=== PATIENT | male | born 1935 | race Caucasian/White ===

== ENCOUNTER → 2019-03-10 | Day surgery (SDC) | payer MEDICARE, OTHER ==
[2019-03-05 13:06] VITALS: BMI 36.7
[2019-03-10 14:25] VITALS: BP 139/86; PULSE 88; RESP 16; TEMP 97
--- NOTE | 2019-03-17 23:09 | PCN ---
PROCEDURE NOTE DATE OF PROCEDURE: 03/10/2019. BRIEF HISTORY: Patient is an 83-year-old white male with history of dementia, presently being investigated for progressive dysphagia to solids and liquids for the last several months' duration. He recently had an upper endoscopy done at [facility] about a month ago that showed evidence of slightly dilated esophagus with a tight lower esophageal sphincter suspicious for esophageal achalasia. He is hence scheduled for esophageal manometry to evaluate further. PROCEDURE PERFORMED: High-resolution impedance esophageal manometry. PREOPERATIVE DIAGNOSIS: Progressive dysphagia to solids and liquids of several months' duration. PROCEDURE DESCRIPTION: After informed consent was obtained, the patient was brought to the endoscopy unit. The esophageal manometry catheter was passed into the external nostril and was gently advanced into the distal esophagus and into the stomach. Study was performed by endoscopy nurse Tri Robb. Using [place] classification, the study was interpreted and the following are the study results: 1. Lower esophageal sphincter data: Mean IRP is 30 mmHg. 2. Lower esophageal body: Mean DCI 912. Peristaltic contractions 0%. Bolus transit time with liquids 20% and viscous was 80%. 3. Mean DCI 912 mmHg. 4. Multiple isometric contractions noted throughout the study period. INTERPRETATION: The above esophageal manometry study shows increased mean integral residual pressures (mean IRP which is 30 mmHg) and there was evidence of aperistalsis with isometric contractions, all consistent with esophageal achalasia, type 2. MMNADYAL / LATASHAN: [id number] /
== END ==
LOC: ORWHC2ENDO 14:05
PROVIDERS: ATTEND Internal Medicine Gastroenterology
DX: K21.9 Gastro-esophageal reflux disease without esophagitis (principal); R13.10 Dysphagia, unspecified
CPT/HCPCS: 91010; 91037

== ENCOUNTER 2020-02-01 10:26 | Inpatient (IN) | payer MEDICARE, OTHER ==
[2020-02-01] MEDS ORDERED: VANCOMYCIN IV PER PHARMACY 1 EACH MISC MISCELLANE PRN ×2 (11:18→15:47)
[2020-02-01] MEDS ORDERED: CEFEPIME 2 GM in SODIUM CHLORIDE 0.9% 100 ML IVPB STA (11:18)
[2020-02-01] MEDS ORDERED: NALOXONE 0.4 MG/ML 1 ML VIAL IV PRN (11:19)
--- NOTE | 2020-02-01 11:21 | ED ---
General Adult HPI <Partha Tavarez - Last Filed: 02/01/20 11:24> - General Source: Caregiver Mode of arrival: wheelchair Limitations: no limitations <Real Santos - Last Filed: 02/01/20 14:20> - General Chief complaint: Recheck/Abnormal Lab/Rx Stated complaint: Wound Care sent to ER Time Seen by Provider: 02/01/20 11:03 - History of Present Illness Initial comments: 84-year-old male with a complicated past medical history including atrial fibrillation, heart failure, dementia, COPD, hyperlipidemia, hypertension presents to the emergency room for a chief complaint of right foot wound. Patient is very hard of hearing. Patient is a poor historian likely because of this. Patient has had a chronic wound on his right foot it appears for at least over one month as he has been seen in wound center. Patient was sent over from wound center and dropped off by family member however they did not stay. Patient denies fevers. Patient does have a history of MRSA. Patient has no other complaints at this time including shortness of breath, chest pain, abdominal pain, nausea or vomiting, headache, or visual changes. (Real Santos) - Related Data Home Medications Medication Instructions Recorded Confirmed Bisacodyl 10 mg PO DAILY PRN 03/05/19 02/01/20 HYDROcodone/APAP 5-325MG [[place] 1 tab PO QID 03/05/19 02/01/20 5-325] Insulin Glargine,Hum.rec.anlog 40 unit SQ HS@209903/05/19 02/01/20 [Basaglal Patricia U-100] Magnesium Oxide [Mag-Ox] 400 mg PO DAILY@89903/05/19 02/01/20 Metoprolol Tartrate [Lopressor] 100 mg PO BID@899,209903/05/19 02/01/20 Acetaminophen [Tylenol Extra 500 mg PO Q8H PRN 02/01/20 02/01/20 Strength] Diltiazem HCl [Diltiazem HCl 24Hr 240 mg PO DAILY@89902/01/20 02/01/20 ER] Donepezil HCl [Aricept] 5 mg PO HS@209902/01/20 02/01/20 Furosemide [Lasix] 40 mg PO DAILY@89902/01/20 02/01/20 INSULIN ASPART (NovoLOG) [NovoLOG 5 unit SQ DAILY@1700 02/01/20 02/01/20 (formulary)] Magnesium Hydroxide [Milk of 2,400 mg PO Q48H PRN 02/01/20 02/01/20 Magnesia] Na Phos,M-B/Na Phos,Di-Ba [Fleet 133 ml RECTAL DAILY PRN 02/01/20 02/01/20 Adult] Omeprazole 20 mg PO DAILY@0600 02/01/20 02/01/20 Phenylephrine HCl/[place] Butter 1 supp RECTAL Q12H 02/01/20 02/01/20 [Preparation H Suppository] Potassium Chloride 10 meq PO DAILY@0900 02/01/20 02/01/20 Warfarin [Coumadin] 4.5 mg PO HS@2100 02/01/20 02/01/20 bisacodyL [Bisacodyl] 10 mg RECTAL Q72H PRN 02/01/20 02/01/20 guaiFENesin [guaiFENesin Oral 200 mg PO Q4H PRN 02/01/20 02/01/20 Solution] polyethylene glycoL 3350 [Miralax] 17 gm PO DAILY@0900 02/01/20 02/01/20 Allergies Allergy/AdvReac Type Severity Reaction Status Date / Time celecoxib [From Celebrex] Allergy Unknown Verified 02/01/20 11:31 gabapentin [From Neurontin] Allergy Unknown Verified 02/01/20 11:31 Review of Systems ROS Other: All systems not noted in ROS Statement are negative. <Partha Tavarez - Last Filed: 02/01/20 11:24> ROS Other: All systems not noted in ROS Statement are negative. <Real Santos - Last Filed: 02/01/20 14:20> ROS Statement: Those systems with pertinent positive or pertinent negative responses have been documented in the HPI. Past Medical History Past Medical History: Atrial Fibrillation, Heart Failure, COPD, Dementia, Eye Disorder, GERD/Reflux, Hearing Disorder / Deafness, Hyperlipidemia, Hypertension, Myocardial Infarction ([place]), Osteoarthritis (OA) Additional Past Medical History / Comment(s): GLAUCOMA. CHRONIC KIDNEY DISEASE Last Myocardial Infarction Date:: UNK History of Any Multi-Drug Resistant Organisms: MRSA, Other MDRO Date of last positivie culture/infection: 12/21/19 MRSA MDRO Source:: MRSA FOOT Past Surgical History: Unable to Obtain, Hernia Repair Past Anesthesia/Blood Transfusion Reactions: Unable to Obtain Past Psychological History: Unable to Obtain Past Alcohol Use History: None Reported Past Drug Use History: None Reported - Past Family History Mother History Unknown: Yes <Real Santos - Last Filed: 02/01/20 14:20> General Exam Limitations: no limitations General appearance: alert, in no apparent distress Head exam: Present: atraumatic, normocephalic, normal inspection Eye exam: Present: normal appearance, PERRL, EOMI. Absent: scleral icterus, conjunctival injection, periorbital swelling ENT exam: Present: normal exam, mucous membranes moist Neck exam: Present: normal inspection, full ROM. Absent: tenderness, meningismus, lymphadenopathy Respiratory exam: Present: normal lung sounds bilaterally. Absent: respiratory distress, wheezes, rales, rhonchi, stridor Cardiovascular Exam: Present: regular rate, normal rhythm, normal heart sounds. Absent: systolic murmur, diastolic murmur, rubs, gallop, clicks Extremities exam: Present: full ROM (Full range of motion of the right foot.), normal capillary refill (Capillary refill less than 2 seconds in the right lower extremity.), pedal edema (Patient does have edema noted of the right foot.), other (Patient has wound noted to the lateral aspect to the right foot. Fifth toe appears necrotic. There is erythema associated with the right foot as well.). Absent: tenderness, calf tenderness <Real Santos - Last Filed: 02/01/20 14:20> Course <Partha Tavarez - Last Filed: 02/01/20 11:24> Vital Signs 02/01/20 02/01/20 10:32 12:02 Temperature 97.9 F 98.0 F Pulse Rate 86 86 Respiratory 18 18 Rate Blood Pressure 144/88 138/78 O2 Sat by Pulse 95 97 Oximetry - Reevaluation(s) Reevaluation #1: 02/01/20 11:24 PA supervision: I proceeded [id number] evaluation the patient. He was sent over from wound care center due to a wound on the right foot. He does demonstrate evidence of duskiness to the right foot with evidence of a wound with concern for osteomyelitis. Patient be admitted with vascular surgery consultation the case was discussed with Dr. Woodruff. (Partha Tavarez) Medical Decision Making - Lab Data Result diagrams: 02/01/20 11:28 02/01/20 11:28 <Real Santos - Last Filed: 02/01/20 14:20> - Medical Decision Making Septic workup initiated. Patient was started on vancomycin to cover for history of MRSA as well as cefepime. CBC shows leukocytosis with a left shift. CMP does show evidence of chronic kidney disease. CRP is elevated to 77. X-ray of the right foot was reviewed and does show increased soft tissue ulceration and subcutaneous gas in the right lateral plantar foot. There is evidence of oss eous erosion and osteomyelitis as well. Patient was admitted to Dr. Woodruff who requested a consult to Dr. Patel. (Real Santos) Disposition <Partha Tavarez - Last Filed: 02/01/20 11:24> Is patient prescribed a controlled substance at d/c from ED?: No Time of Disposition: 11:20 <Real Santos - Last Filed: 02/01/20 14:20> Clinical Impression: Cellulitis, Chronic wound of extremity Disposition: ADMITTED IP TO THIS HOSP
[2020-02-01] MEDS ORDERED: SODIUM CHLORIDE 0.9% 500 ML 500 ML IV SCH (11:30)
[2020-02-01] MEDS ORDERED: VANCOMYCIN 1,750 MG in SODIUM CHLORIDE 0.9% 500 ML 500 ML IVPB ONE (11:30)
[2020-02-01 11:51] LABS: Basophils # (A) 0.1 k/uL (0-0.2); Basophils % (A) 1 %; Eosinophils # (A) 0.6 k/uL (0-0.7); Eosinophils % (A) 4 %; HCT 46.1 % (39.0-53.0); HGB 14.3 gm/dL (13.0-17.5); Lymphocytes # (A) 2.3 k/uL (1.0-4.8); Lymphocytes % (A) 15 %; MCH 26.7 pg (25.0-35.0); MCHC 30.9 g/dL (31.0-37.0); MCV 86.3 fL (80.0-100.0); Mean Platelet Volume 10.2; Monocytes % (A) 7 %; Neutrophils # (A) 11.1 k/uL (1.3-7.7); Neutrophils % (A) 72 %; Platelet Count 276 k/uL (150-450); RBC 5.34 m/uL (4.30-5.90); RDW 13.2 % (11.5-15.5); WBC 15.4 k/uL (3.8-10.6)
--- NOTE | 2020-02-01 11:56 | XR ---
EXAMINATION TYPE: XR foot complete RT DATE OF EXAM: 02/01/2020 CLINICAL HISTORY: Sepsis. Nonhealing wound lateral side of right foot. TECHNIQUE: Frontal, lateral, and oblique images of the right foot are obtained. COMPARISON: 12/21/2019 right foot radiograph FINDINGS: There is increased ulceration of the plantar aspect of the right lateral foot over the reg ion of the fifth metatarsal phalangeal joint, with increased soft tissue irregularity and subcutaneou s gas. There are increased lucencies overlapping the fifth metatarsal head and base of the fifth prox imal phalanx there is decreased cortical sharpness at the medial aspect of the fifth metatarsal head. There is no acute fracture/dislocation evident in the right foot. IMPRESSION: Increased soft tissue ulceration and subcutaneous gas of the right lateral and plantar fo ot in the region of the fifth MTP joint versus 12/21/2019. Many lucencies overlying the fifth MTP join t are likely related to subcutaneous gas. There is decreased cortical sharpness at the medial aspect of the fifth metatarsal head, which may represent osseous erosion and osteomyelitis. Consider MRI exa mination of the foot.
[2020-02-01 12:01] LABS: INR 2.2 (<1.2); Partial Thromboplastin Time 35.5 sec (22.0-30.0); Prothrombin Time 21.6 sec (9.0-12.0)
[2020-02-01] MEDS: SODIUM CHLORIDE 0.9% 1,000 ML IV SCH (12:01)
[2020-02-01 12:20] LABS: Albumin 3.4 g/dL (3.5-5.0); C Reactive Protein 77.3 mg/L (<10.0); Calcium 8.7 mg/dL (8.4-10.2); Potassium 4.9 mmol/L (3.5-5.1); Total Bilirubin 0.6 mg/dL (0.2-1.3); Total Protein 7.2 g/dL (6.3-8.2)
[2020-02-01] MEDS ORDERED: PHYTONADIONE ORAL 5 MG/5 ML ORAL.SYRG PO STA (14:04)
--- NOTE | 2020-02-01 14:04 | P.GSCN ---
History of Present Illness Consult date: 02/01/20 Reason for Consult: Nonhealing wound to the right fifth toe and foot History of present illness: This is a 84-year-old male with a past medical history that includes atrial fibrillation, heart failure, dementia, COPD, hyperlipidemia, hypertension who presented to the emergency room for chief complaint of right foot wound. The patient is a very poor historian and most of the HPI is collected from the chart. Apparently the patient has had the wound for at least a month, who had been seen in the wound clinic and was told to come to the emergency department. There is no family present at the bedside. Patient states there is pain to the right toe and foot, he is unsure if he has had a fever. He denies any shortness of breath or chest pain. Patient apparently has a past history of MRSA. He does currently take Coumadin. His WBC is 15.4, hemoglobin 14.3, hematocrit 46, platelets 276, sodium 135, potassium 4.9, BUN 35, creatinine 1.34. Review of Systems Review systems as stated in the HPI, patient was unable to give a complete review of systems Past Medical History Past Medical History: Atrial Fibrillation, Heart Failure, COPD, Dementia, Eye Disorder, GERD/Reflux, Hearing Disorder / Deafness, Hyperlipidemia, Hypertension, Myocardial Infarction ([place]), Osteoarthritis ([place]) Additional Past Medical History / Comment(s): GLAUCOMA. CHRONIC KIDNEY DISEASE Last Myocardial Infarction Date:: UNK History of Any Multi-Drug Resistant Organisms: MRSA, Other MDRO Year Discovered:: 12/21/19 MRSA MDRO Source:: MRSA FOOT Past Surgical History: Unable to Obtain, Hernia Repair Past Anesthesia/Blood Transfusion Reactions: Unable to Obtain Past Psychological History: Unable to Obtain Past Alcohol Use History: None Reported Past Drug Use History: None Reported - Past Family History Mother History Unknown: Yes Medications and Allergies Home Medications Medication Instructions Recorded Confirmed Type Bisacodyl 10 mg PO DAILY PRN 03/05/19 02/01/20 History HYDROcodone/APAP 5-325MG [[place] 1 tab PO QID 03/05/19 02/01/20 History 5-325] Insulin Glargine,Hum.rec.anlog 40 unit SQ HS@2100 03/05/19 02/01/20 History [Basaglal Ibrahimpen U-100] Magnesium Oxide [Mag-Ox] 400 mg PO DAILY@0900 03/05/19 08/25/20 History Metoprolol Tartrate [Lopressor] 100 mg PO BID@899,209903/05/19 02/01/20 History Acetaminophen [Tylenol Extra 500 mg PO Q8H PRN 02/01/20 02/01/20 History Strength] Diltiazem HCl [Diltiazem HCl 24Hr 240 mg PO DAILY@89902/01/20 02/01/20 History ER] Donepezil HCl [Aricept] 5 mg PO HS@209902/01/20 02/01/20 History Furosemide [Lasix] 40 mg PO DAILY@89902/01/20 02/01/20 History INSULIN ASPART (NovoLOG) [NovoLOG 5 unit SQ DAILY@169902/01/20 02/01/20 History (formulary)] Magnesium Hydroxide [Milk of 2,400 mg PO Q48H PRN 02/01/20 02/01/20 History Magnesia] Na Phos,M-B/Na Phos,Di-Ba [Fleet 133 ml RECTAL DAILY PRN 02/01/20 02/01/20 History Adult] Omeprazole 20 mg PO DAILY@59902/01/20 02/01/20 History Phenylephrine HCl/[place] Butter 1 supp RECTAL Q12H 02/01/20 02/01/20 History [Preparation H Suppository] Potassium Chloride 10 meq PO DAILY@89902/01/20 02/01/20 History Warfarin [Coumadin] 4.5 mg PO HS@209902/01/20 02/01/20 History bisacodyL [Bisacodyl] 10 mg RECTAL Q72H PRN 02/01/20 02/01/20 History guaiFENesin [guaiFENesin Oral 200 mg PO Q4H PRN 02/01/20 02/01/20 History Solution] polyethylene glycoL 3350 [Miralax] 17 gm PO DAILY@89902/01/20 02/01/20 History Allergies Allergy/AdvReac Type Severity Reaction Status Date / Time celecoxib [From Celebrex] Allergy Unknown Verified 02/01/20 11:31 gabapentin [From Neurontin] Allergy Unknown Verified 02/01/20 11:31 Surgical - Exam Vital Signs Temp Pulse Resp BP Pulse Ox 97.9 F 86 18 144/88 95 02/01/20 10:32 02/01/20 10:32 02/01/20 10:32 02/01/20 10:32 02/01/20 10:32 General appearance: The patient is alert, oriented, in no acute distress. HET: Head is normocephalic and atraumatic. Neck: Supple without lymphadenopathy. Heart: S1 S2. Regular rate and rhythm. Lungs: No crackles or wheezes are heard. Abdomen: Soft, nontender, nondistended with bowel sounds. Extremities: Bilateral lower extremities with edema. Right lower extremity with cellulitis up to the ankle surrounding the dorsal and plantar aspect of his right foot. Right fifth toe swollen with purple and black appearing tissue. Ulcer to the lateral side of the fifth toe and right foot with scant amount of drainage. Bilateral palpable femoral pulses. Left popliteal, PT and DP with monophasic Doppler signal. Left lower extremity with biphasic popliteal, monophasic DP and PT Doppler signals. Neurological: No focal deficits. Strength and sensation are grossly intact. Results X-ray of the right foot impression shows increased soft tissue ulceration and subcutaneous gas of the right lateral plantar foot in the region of the fifth MTP joint versus 12/21/2019. Many lucencies overlying the fifth MTP joint are likely related to subcutaneous gas. There is decreased cortical sharpness at the medial aspect of the fifth metatarsal head, which may represent osseous erosion and osteomyelitis. Consider MRI examination of the foot. - Labs 02/01/20 11:28 02/01/20 11:28 Abnormal Lab Results - Last 24 Hours (Table) 02/01/20 02/01/20 02/01/20 Range/Units 11:28 11:28 11:28 WBC 15.4 H (3.8-10.6) k/uL MCHC 30.9 L (31.0-37.0) g/dL Neutrophils # 11.1 H (1.3-7.7) k/uL PT 21.6 H (9.0-12.0) sec INR 2.2 H (<1.2) APTT 35.5 H (22.0-30.0) sec Sodium 135 L (137-145) mmol/L Chloride 94 L (98-107) mmol/L Carbon Dioxide 33 H (22-30) mmol/L BUN 35 H (9-20) mg/dL Creatinine 1.34 H (0.66-1.25) mg/dL Glucose 133 H (74-99) mg/dL Alkaline Phosphatase 190 H (38-126) U/L C-Reactive Protein 77.3 H (<10.0) mg/L Albumin 3.4 L (3.5-5.0) g/dL Diabetes panel 02/01/20 Range/Units 11:28 Sodium 135 L (137-145) mmol/L Potassium 4.9 (3.5-5.1) mmol/L Chloride 94 L (98-107) mmol/L Carbon Dioxide 33 H (22-30) mmol/L BUN 35 H (9-20) mg/dL Creatinine 1.34 H (0.66-1.25) mg/dL Glucose 133 H (74-99) mg/dL Calcium 8.7 (8.4-10.2) mg/dL AST 50 (17-59) U/L ALT 32 (4-49) U/L Alkaline Phosphatase 190 H (38-126) U/L Total Protein 7.2 (6.3-8.2) g/dL Albumin 3.4 L (3.5-5.0) g/dL Calcium panel 02/01/20 Range/Units 11:28 Calcium 8.7 (8.4-10.2) mg/dL Albumin 3.4 L (3.5-5.0) g/dL Pituitary panel 02/01/20 Range/Units 11:28 Sodium 135 L (137-145) mmol/L Potassium 4.9 (3.5-5.1) mmol/L Chloride 94 L (98-107) mmol/L Carbon Dioxide 33 H (22-30) mmol/L BUN 35 H (9-20) mg/dL Creatinine 1.34 H (0.66-1.25) mg/dL Glucose 133 H (74-99) mg/dL Calcium 8.7 (8.4-10.2) mg/dL Adrenal panel 02/01/20 Range/Units 11:28 Sodium 135 L (137-145) mmol/L Potassium 4.9 (3.5-5.1) mmol/L Chloride 94 L (98-107) mmol/L Carbon Dioxide 33 H (22-30) mmol/L BUN 35 H (9-20) mg/dL Creatinine 1.34 H (0.66-1.25) mg/dL Glucose 133 H (74-99) mg/dL Calcium 8.7 (8.4-10.2) mg/dL Total Bilirubin 0.6 (0.2-1.3) mg/dL AST 50 (17-59) U/L ALT 32 (4-49) U/L Alkaline Phosphatase 190 H (38-126) U/L Total Protein 7.2 (6.3-8.2) g/dL Albumin 3.4 L (3.5-5.0) g/dL Assessment and Plan Assessment: 1. Nonhealing ulcer to the right foot 2. Right foot x-ray showing increased soft tissue ulceration and subcutaneous gas of the right lateral and plantar foot in the region of the fifth MTP joint. 3. Atrial fibrillation 4. Congestive heart failure 5. Dementia Plan: Will obtain arterial ultrasound of the bilateral lower extremities. Continue with IV antibiotics. Continue to hold Coumadin. Will give patient vitamin K and milligrams by mouth for an INR of 2.2. Nothing by mouth after midnight. Patient will be scheduled for a right foot debridement and fifth metatarsal amputation tomorrow with Dr. Patel. Thank you for this consultation allowing us take part in the plan of care of your patient during his hospital stay. The above dictated assessment and findings were discussed with Dr. Patel. The impression and plan of care have been directed as dictated.
[2020-02-01] MEDS ORDERED: NA PHOS,M-B/NA PHOS,DI-BA 133 ML ENEMA RECTAL PRN (15:44)
[2020-02-01] MEDS ORDERED: bisacodyL 5 MG TABLET.DR PO PRN (15:44)
[2020-02-01] MEDS ORDERED: bisacodyL 10 MG SUPP RECTAL PRN (15:44)
[2020-02-01] MEDS ORDERED: MAGNESIUM HYDROXIDE 2,400 MG/10 ML CUP PO PRN (15:44)
[2020-02-01] MEDS ORDERED: polyethylene glycoL 3350 17 GM POWD.PACK PO PRN (15:44)
[2020-02-01] MEDS ORDERED: guaiFENesin SYRUP 100MG/5ML 200 MG/10 ML CUP PO PRN (15:44)
[2020-02-01] MEDS ORDERED: ACETAMINOPHEN TAB 500 MG TAB PO PRN (15:44)
--- NOTE | 2020-02-01 16:41 | P.HPIM ---
History of Present Illness Patient is a pleasant 84-year-old male was transferred here from a subacute rehab because of nonhealing wound on the right leg. Because of the hearing problems patient is a poor historian but he did complain that he has pain in the right foot. Denied any fever chills. Patient is a correction resident and mostly bedbound. Patient had history of MRSA does take Coumadin INR of 2.9, patient has been of peripancreatic to baseline is not available at this time. Patient was started on broad-spectrum antibiotics vancomycin and cefepime infectious disease and vascular surgery was consulted. Review of Systems Unable to obtain due to his clinical condition Past Medical History Past Medical History: Atrial Fibrillation, Heart Failure, COPD, Dementia, Eye Disorder, GERD/Reflux, Hearing Disorder / Deafness, Hyperlipidemia, Hypertension, Myocardial Infarction (PR), Osteoarthritis (OA) Additional Past Medical History / Comment(s): GLAUCOMA. CHRONIC KIDNEY DISEASE Last Myocardial Infarction Date:: UNK History of Any Multi-Drug Resistant Organisms: MRSA, Other MDRO Date of last positivie culture/infection: 12/21/19 MRSA MDRO Source:: MRSA FOOT Past Surgical History: Unable to Obtain, Hernia Repair Additional Past Surgical History / Comment(s): open heart surgery Past Anesthesia/Blood Transfusion Reactions: Unable to Obtain Past Psychological History: Unable to Obtain Additional Psychological History / Comment(s): DEMENTIA Smoking Status: Former smoker Past Alcohol Use History: None Reported Past Drug Use History: None Reported Additional Drug Use History / Comment(s): Daughter stated that patient smoked years ago - Past Family History Mother History Unknown: Yes Medications and Allergies Home Medications Medication Instructions Recorded Confirmed Type Bisacodyl 10 mg PO DAILY PRN 03/05/19 02/01/20 History HYDROcodone/APAP 5-325MG [[place] 1 tab PO QID 03/05/19 02/01/20 History 5-325] Insulin Glargine,Hum.rec.anlog 40 unit SQ HS@209903/05/19 02/01/20 History [Basaglar Kwikpen U-100] Magnesium Oxide [Mag-Ox] 400 mg PO DAILY@0900 03/05/19 02/01/20 History Metoprolol Tartrate [Lopressor] 100 mg PO BID@0900,209903/05/19 02/01/20 History Acetaminophen [Tylenol Extra 500 mg PO Q8H PRN 02/01/20 02/01/20 History Strength] Diltiazem HCl [Diltiazem HCl 24Hr 240 mg PO DAILY@89902/01/20 02/01/20 History ER] Donepezil HCl [Aricept] 5 mg PO HS@209902/01/20 02/01/20 History Furosemide [Lasix] 40 mg PO DAILY@0902/01/20 02/01/20 History INSULIN ASPART (NovoLOG) [NovoLOG 5 unit SQ DAILY@1700 02/01/20 02/01/20 History (formulary)] Magnesium Hydroxide [Milk of 2,400 mg PO Q48H PRN 02/01/20 02/01/20 History Magnesia] Na Phos,M-B/Na Phos,Di-Ba [Fleet 133 ml RECTAL DAILY PRN 02/01/20 02/01/20 History Adult] Omeprazole 20 mg PO DAILY@0602/01/20 02/01/20 History Phenylephrine HCl/[place] Butter 1 supp RECTAL Q12H 02/01/20 02/01/20 History [Preparation H Suppository] Potassium Chloride 10 meq PO DAILY@89902/01/20 02/01/20 History Warfarin [Coumadin] 4.5 mg PO HS@209902/01/20 02/01/20 History bisacodyL [Bisacodyl] 10 mg RECTAL Q72H PRN 02/01/20 02/01/20 History guaiFENesin [guaiFENesin Oral 200 mg PO Q4H PRN 02/01/20 02/01/20 History Solution] polyethylene glycoL 3350 [Miralax] 17 gm PO DAILY@0902/01/20 02/01/20 History Allergies Allergy/AdvReac Type Severity Reaction Status Date / Time celecoxib [From Celebrex] Allergy Unknown Verified 02/01/20 11:31 gabapentin [From Neurontin] Allergy Unknown Verified 02/01/20 11:31 Physical Exam Vitals: Vital Signs Temp Pulse Pulse Resp BP BP Pulse Ox 02/01/20 15:00 97.6 F 80 18 135/79 96 02/01/20 12:30 97.6 F 80 18 157/86 96 02/01/20 12:02 98.0 F 86 18 138/78 97 02/01/20 10:32 97.9 F 86 18 144/88 95 Intake and Output 02/01/20 02/01/20 02/01/20 06:59 14:59 22:59 Intake Total 118 Balance 118 Intake: Oral 118 Other: Voiding Method Toilet Urinal # Voids 1 # Bowel Movements 1 Weight 96.162 kg PHYSICAL EXAMINATION: GENERAL: The patient is alert and oriented x3, not in any acute distress. Well developed, well nourished. HEENT: Pupils are round and equally reacting to light. EOMI. No scleral icterus. No conjunctival pallor. Normocephalic, atraumatic. No pharyngeal erythema. No thyromegaly. CARDIOVASCULAR: S1 and S2 present. No murmurs, rubs, or gallops. PULMONARY: Chest is clear to auscultation, no wheezing or crackles. ABDOMEN: Soft, nontender, nondistended, normoactive bowel sounds. No palpable organomegaly. MUSCULOSKELETAL: No joint swelling or deformity. EXTREMITIES: No cyanosis, clubbing, there is significant bilateral lower extremity edema and right lower extremity cellulitis going up to the ankles with an ulcer in the base of the right fifth toe on the lateral aspect and dorsal aspect with a purple and black appearance of the base. Very minimal drainage from that area NEUROLOGICAL: Gross neurological examination did not reveal any focal deficits. SKIN: No rashes. Results CBC & Chem 7: 02/01/20 11:28 02/01/20 11:28 Labs: Abnormal Lab Results - Last 24 Hours (Table) 02/01/20 02/01/20 02/01/20 Range/Units 11:28 11:28 11:28 WBC 15.4 H (3.8-10.6) k/uL MCHC 30.9 L (31.0-37.0) g/dL Neutrophils # 11.1 H (1.3-7.7) k/uL PT 21.6 H (9.0-12.0) sec INR 2.2 H (<1.2) APTT 35.5 H (22.0-30.0) sec Sodium 135 L (137-145) mmol/L Chloride 94 L (98-107) mmol/L Carbon Dioxide 33 H (22-30) mmol/L BUN 35 H (9-20) mg/dL Creatinine 1.34 H (0.66-1.25) mg/dL Glucose 133 H (74-99) mg/dL Alkaline Phosphatase 190 H (38-126) U/L C-Reactive Protein 77.3 H (<10.0) mg/L Albumin 3.4 L (3.5-5.0) g/dL Thrombosis Risk Factor Assmnt - Choose All That Apply Each Factor Represents 1 point: Abnormal pulmonary function (COPD), Acute PR, Obesity (BMI >25), Swollen legs (current) Thrombosis Risk Factor Assessment Total Risk Factor Score: 4 Thrombosis Risk Factor Assessment Level: Moderate Risk Assessment and Plan Plan: -Infection cellulitis and nonhealing ulcer of the right foot: Patient will undergo debridement tomorrow Coumadin will be held patient received vitamin K and patient will be continued on vancomycin and cefepime. Right foot x-ray was reviewed -Chronic atrial fibrillation on Coumadin Coumadin is being held for debridement patient received vitamin K today. INR tomorrow -Bilateral lower extremity edema probably venous stasis will order the Eduardo bandages Lasix will be held because of renal failure -Possibly acute renal failure unsure whether patient has chronic kidney disease, Lasix will be held -COPD without any acute exacerbation -Generalized deconditioning: Patient is mostly bedbound does have significant atrophy of both legs no focal weakness but this does have significant generalized weakness -Hypertension -Hyperlipidemia -Could not disease -History of MRSA in the foot in the past
[2020-02-01 16:51] LABS: Glucose,Whole Blood 139 mg/dL (75-99)
[2020-02-01] MEDS: INSULIN ASPART (NovoLOG) 100 UNIT/ML VIAL SQ SCH (18:03)
[2020-02-01] MEDS: HYDROcodone/APAP 5-325MG 1 EACH TAB PO SCH ×2 (18:03→21:33)
[2020-02-01] MEDS: CEFEPIME 2 GM in SODIUM CHLORIDE 0.9% 100 ML IVPB SCH (20:13)
[2020-02-01 20:46] LABS: Glucose,Whole Blood 102 mg/dL (75-99)
[2020-02-01] MEDS: DONEPEZIL 5 MG TAB PO SCH (21:15)
[2020-02-01] MEDS: INSULIN DETEMIR (LEVEMIR) 100 UNIT/ML SYR SQ SCH (21:15)
[2020-02-01] MEDS: METOPROLOL TARTRATE 50 MG TAB PO SCH (21:15)
[2020-02-02] MEDS: PANTOPRAZOLE 40 MG TABLET PO SCH (05:12)
[2020-02-02 06:41] LABS: Glucose,Whole Blood 56 mg/dL (75-99)
[2020-02-02 07:14] LABS: Glucose,Whole Blood 78 mg/dL (75-99)
[2020-02-02 08:06] LABS: HCT 42.5 % (39.0-53.0); HGB 13.4 gm/dL (13.0-17.5); MCH 27.2 pg (25.0-35.0); MCHC 31.4 g/dL (31.0-37.0); MCV 86.6 fL (80.0-100.0); Mean Platelet Volume 9.6; Platelet Count 276 k/uL (150-450); RBC 4.91 m/uL (4.30-5.90); RDW 13.3 % (11.5-15.5); WBC 17.1 k/uL (3.8-10.6)
[2020-02-02 08:17] LABS: Calcium 8.4 mg/dL (8.4-10.2); Magnesium 1.6 mg/dL (1.6-2.3); Potassium 4.5 mmol/L (3.5-5.1)
[2020-02-02 08:20] LABS: INR 1.5 (<1.2); Prothrombin Time 15.1 sec (9.0-12.0)
[2020-02-02] MEDS: CEFEPIME 2 GM in SODIUM CHLORIDE 0.9% 100 ML IVPB SCH ×2 (08:34→21:08)
[2020-02-02] MEDS: METOPROLOL TARTRATE 50 MG TAB PO SCH ×2 (08:34→21:08)
[2020-02-02] MEDS: HYDROcodone/APAP 5-325MG 1 EACH TAB PO SCH ×4 (08:34→21:07)
[2020-02-02] MEDS: DILTIAZEM CD 240 MG CAP.ER.24H PO SCH (08:34)
[2020-02-02] MEDS: VANCOMYCIN 1,750 MG in SODIUM CHLORIDE 0.9% 500 ML 500 ML IVPB SCH (08:35)
[2020-02-02] MEDS ORDERED: NON FORMULARY DRUG (Potassium Chloride [Potassium Chloride] 10 MEQ) PO SCH (09:00)
--- NOTE | 2020-02-02 11:11 | P.PN ---
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 Patel. Acute changes through the night. The patient complains of bilateral lower extremity pain. States pain is worse on right 5th toe and foot. Maintain on IV antibiotics. He has been afebrile through the night. He is scheduled afternoon for a right foot wound debridement and fifth toe amputation. Objective - Vital Signs Vital signs: Vital Signs Temp 97.6 F 02/02/20 02:00 Pulse 64 02/02/20 02:00 Resp 14 02/01/20 19:32 BP 141/72 02/02/20 02:00 Pulse Ox 97 02/02/20 02:00 Intake & Output 02/01/20 02/02/20 02/02/20 18:59 06:59 18:59 Intake Total 354 100 Output Total 400 Balance 354 -300 Weight 98 kg 92.3 kg Intake: Oral 354 100 Output: Urine 400 Other: Voiding Method Toilet Toilet Urinal Urinal # Voids 1 1 # Bowel Movements 1 - Exam General appearance: The patient is alert, oriented, in no acute distress. HET: Head is normocephalic and atraumatic. Neck: Supple without lymphadenopathy. Heart: S1 S2. Regular rate and rhythm. Lungs: No crackles or wheezes are heard. Abdomen: Soft, nontender, nondistended with bowel sounds. Extremities: Bilateral lower extremities with edema. Right lower extremity with cellulitis up to the ankle surrounding the dorsal and plantar aspect of his right foot. Right fifth toe swollen with purple and black appearing tissue. Ulcer to the lateral side of the fifth toe and right foot with scant amount of drainage. Bilateral palpable femoral pulses. Left popliteal, PT and DP with monophasic Doppler signal. Left lower extremity with biphasic popliteal, monophasic DP and PT Doppler signals. Neurological: No focal deficits. Strength and sensation are grossly intact. - Labs CBC & Chem 7: 02/02/20 07:21 02/02/20 07:21 Labs: Abnormal Lab Results - Last 24 Hours (Table) 02/01/20 02/01/20 02/01/20 Range/Units 11:28 11:28 11:28 WBC 15.4 H (3.8-10.6) k/uL MCHC 30.9 L (31.0-37.0) g/dL Neutrophils # 11.1 H (1.3-7.7) k/uL PT 21.6 H (9.0-12.0) sec INR 2.2 H (<1.2) APTT 35.5 H (22.0-30.0) sec Sodium 135 L (137-145) mmol/L Chloride 94 L (98-107) mmol/L Carbon Dioxide 33 H (22-30) mmol/L BUN 35 H (9-20) mg/dL Creatinine 1.34 H (0.66-1.25) mg/dL Glucose 133 H (74-99) mg/dL POC Glucose (mg/dL) (75-99) mg/dL Alkaline Phosphatase 190 H (38-126) U/L C-Reactive Protein 77.3 H (<10.0) mg/L Albumin 3.4 L (3.5-5.0) g/dL 02/01/20 02/01/20 02/02/20 Range/Units 16:50 20:45 06:40 WBC (3.8-10.6) k/uL MCHC (31.0-37.0) g/dL Neutrophils # (1.3-7.7) k/uL PT (9.0-12.0) sec INR (<1.2) APTT (22.0-30.0) sec Sodium (137-145) mmol/L Chloride (98-107) mmol/L Carbon Dioxide (22-30) mmol/L BUN (9-20) mg/dL Creatinine (0.66-1.25) mg/dL Glucose (74-99) mg/dL POC Glucose (mg/dL) 139 H 102 H 56 L (75-99) mg/dL Alkaline Phosphatase (38-126) U/L C-Reactive Protein (<10.0) mg/L Albumin (3.5-5.0) g/dL 02/02/20 02/02/20 02/02/20 Range/Units 07:21 07:21 07:21 WBC 17.1 H (3.8-10.6) k/uL MCHC (31.0-37.0) g/dL Neutrophils # (1.3-7.7) k/uL PT 15.1 H (9.0-12.0) sec INR 1.5 H (<1.2) APTT (22.0-30.0) sec Sodium 136 L (137-145) mmol/L Chloride (98-107) mmol/L Carbon Dioxide 31 H (22-30) mmol/L BUN 27 H (9-20) mg/dL Creatinine (0.66-1.25) mg/dL Glucose 105 H (74-99) mg/dL POC Glucose (mg/dL) (75-99) mg/dL Alkaline Phosphatase (38-126) U/L C-Reactive Protein (<10.0) mg/L Albumin (3.5-5.0) g/dL Assessment and Plan Assessment: 1. Nonhealing ulcer to the right foot 2. Right foot x-ray showing increased soft tissue ulceration and subcutaneous gas of the right lateral and plantar foot in the region of the fifth MTP joint. 3. Atrial fibrillation 4. Congestive heart failure 5. Dementia Plan: Arterial Doppler study reviewed by Dr. Patel, showing peripheral arterial disease bilaterally with increased compromised blood flow to the right lower extremity. Continue to hold Coumadin prior to surgery. Continue to keep nothing by mouth for surgery today with Dr. Patel. Continue with IV antibiotics. Further recommendations to follow. The above dictated assessment and findings were discussed with Dr. Patel. The impression and plan of care have been directed as dictated.
[2020-02-02 11:30] LABS: Glucose,Whole Blood 82 mg/dL (75-99)
--- NOTE | 2020-02-02 11:54 | P.ARTDOP ---
Arterial Doppler LOWER EXTREMITY ARTERIAL DOPPLER: DATE OF SERVICE: 02/01/2020 Reason for study: Gangrene right fifth toe. Doppler waveforms: Multiphasic at both femorals and popliteals and atypical below. Toe waveforms are poor.. Pulse volume recording: []. Pressure gradients: Mild gradient above the low thigh on the right and again across the knee on the right. Left does not have segmental pressures done but there is a mild gradient at the ankle.. Ankle-brachial indices: Cannot be occluded on the right. 0.96 on the left. Suspect this is falsely elevated.. Toe brachial indices: [] on the right, [] on the left Impression: Suspect at least moderate bilateral fem-pop disease. Poor toe waveforms are suspicious for significant fem-pop disease although vasospasm can be a component of it. Clinical correlation and possible vascular surgical consult would be in order..
--- NOTE | 2020-02-02 13:25 | P.PN ---
Subjective Progress Note Date: 02/02/20 Principal diagnosis: Patient is a pleasant 84-year-old male was transferred here from a subacute rehab because of nonhealing wound on the right leg. Because of the hearing problems patient is a poor historian but he did complain that he has pain in the right foot. Denied any fever chills. Patient is a [facility] resident and mostly bedbound. Patient had history of MRSA does take Coumadin INR of 2.9, patient has been of peripancreatic to baseline is not available at this time. Patient was started on broad-spectrum antibiotics vancomycin and cefepime infectious disease and vascular surgery was consulted. 02/02/2020 Patient is seen and evaluated and follow-up currently scheduled to undergo amputation of the fifth right toe with Dr. Patel today. Patient continues to have some right foot pain and discomfort noted. Patient is extremely hard of hearing although responds appropriately to questions and commands. Patient is currently maintained on cefepime along with vancomycin and will continue at this time. Patient underwent arterial study of the right lower extremity showing moderate bilateral fem-pop disease, poor toe waveform and suspicious for significant fem-pop disease although vasospasm can be a component of it. Patient does have gangrene of the right fifth toe. Review of systems: Constitutional: No reports of fatigue, fever, or chills Cardiovascular: No reports of chest pain or palpitations Respiratory: No reports of shortness of breath or cough GI: No reports of nausea, vomiting, or diarrhea : No reports of dysuria or retention Neurovascular: No reports of weakness or numbness All medications have been reviewed Objective - Vital Signs Vital signs: Vital Signs Temp 97.9 F 02/02/20 07:00 Pulse 73 02/02/20 07:00 Resp 16 02/02/20 07:00 BP 149/80 02/02/20 07:00 Pulse Ox 98 02/02/20 07:00 Intake & Output 02/01/20 02/02/20 02/02/20 18:59 06:59 18:59 Intake Total 354 100 Output Total 400 900 Balance 354 -300 -900 Weight 98 kg 92.3 kg Intake: Oral 354 100 Output: Urine 400 900 Other: Voiding Method Toilet Toilet Urinal Urinal # Voids 1 1 # Bowel Movements 1 - Exam GENERAL: The patient is alert and oriented x3, not in any acute distress. Well d eveloped, well nourished. Extremely hard of hearing HEENT: Pupils are round and equally reacting to light. EOMI. No scleral icterus. No conjunctival pallor. Normocephalic, atraumatic. No pharyngeal erythema. No thyromegaly. CARDIOVASCULAR: S1 and S2 present. No murmurs, rubs, or gallops. PULMONARY: Chest is clear to auscultation, no wheezing or crackles. ABDOMEN: Soft, nontender, nondistended, normoactive bowel sounds. No palpable organomegaly. MUSCULOSKELETAL: No joint swelling or deformity. EXTREMITIES: No cyanosis, clubbing, there is significant bilateral lower extremity edema and right lower extremity cellulitis going up to the ankles with an ulcer in the base of the right fifth toe on the lateral aspect and dorsal aspect with a purple and black appearance of the base. Very minimal drainage from that area. Extremely tender to the touch NEUROLOGICAL: Gross neurological examination did not reveal any focal deficits. SKIN: No rashes. - Labs CBC & Chem 7: 02/02/20 07:21 02/02/20 07:21 Labs: Abnormal Lab Results - Last 24 Hours (Table) 02/01/20 02/01/20 02/01/20 Range/Units 11:28 11:28 11:28 WBC 15.4 H (3.8-10.6) k/uL MCHC 30.9 L (31.0-37.0) g/dL Neutrophils # 11.1 H (1.3-7.7) k/uL PT 21.6 H (9.0-12.0) sec INR 2.2 H (<1.2) APTT 35.5 H (22.0-30.0) sec Sodium 135 L (137-145) mmol/L Chloride 94 L (98-107) mmol/L Carbon Dioxide 33 H (22-30) mmol/L BUN 35 H (9-20) mg/dL Creatinine 1.34 H (0.66-1.25) mg/dL Glucose 133 H (74-99) mg/dL POC Glucose (mg/dL) (75-99) mg/dL Alkaline Phosphatase 190 H (38-126) U/L C-Reactive Protein 77.3 H (<10.0) mg/L Albumin 3.4 L (3.5-5.0) g/dL 02/01/20 02/01/20 02/02/20 Range/Units 16:50 20:45 06:40 WBC (3.8-10.6) k/uL MCHC (31.0-37.0) g/dL Neutrophils # (1.3-7.7) k/uL PT (9.0-12.0) sec INR (<1.2) APTT (22.0-30.0) sec Sodium (137-145) mmol/L Chloride (98-107) mmol/L Carbon Dioxide (22-30) mmol/L BUN (9-20) mg/dL Creatinine (0.66-1.25) mg/dL Glucose (74-99) mg/dL POC Glucose (mg/dL) 139 H 102 H 56 L (75-99) mg/dL Alkaline Phosphatase (38-126) U/L C-Reactive Protein (<10.0) mg/L Albumin (3.5-5.0) g/dL 02/02/20 02/02/20 02/02/20 Range/Units 07:21 07:21 07:21 WBC 17.1 H (3.8-10.6) k/uL MCHC (31.0-37.0) g/dL Neutrophils # (1.3-7.7) k/uL PT 15.1 H (9.0-12.0) sec INR 1.5 H (<1.2) APTT (22.0-30.0) sec Sodium 136 L (137-145) mmol/L Chloride (98-107) mmol/L Carbon Dioxide 31 H (22-30) mmol/L BUN 27 H (9-20) mg/dL Creatinine (0.66-1.25) mg/dL Glucose 105 H (74-99) mg/dL POC Glucose (mg/dL) (75-99) mg/dL Alkaline Phosphatase (38-126) U/L C-Reactive Protein (<10.0) mg/L Albumin (3.5-5.0) g/dL Assessment and Plan Assessment: -Infection cellulitis and nonhealing ulcer of the right foot: Patient will undergo debridement and right fifth toe amputation with vascular surgery -Chronic atrial fibrillation on Coumadin. Coumadin remains on hold for procedure today. INR today is 1.5. -Bilateral lower extremity edema probably venous stasis will order the Eduardo bandages Lasix will be held because of renal failure -Possibly acute renal failure unsure whether patient has chronic kidney disease, Lasix will be held, improving, current creatinine is 1.13 with a BUN of 27. -COPD without any acute exacerbation -Generalized deconditioning: Patient is mostly bedbound does have significant atrophy of both legs no focal weakness but this does have significant ge neralized weakness -Hypertension -Hyperlipidemia -Gastroesophageal reflux disease -History of MRSA in the foot in the past -GI prophylaxis: Protonix Plan: Continue current medications, management, and symptomatic treatment. Patient is maintained on IV antibiotics in the form of vancomycin along with cefepime and will continue at this time. Patient is scheduled to undergo right fifth toe amputation with Dr. Patel today. Patient is currently nothing by mouth. We'll continue to monitor INR and discussed with vascular surgery about resuming Coumadin therapy. Will repeat a.m. labs. Further recommendations to follow.
[2020-02-02] MEDS ORDERED: LACTATED RINGERS 1,000 ML IV ONE (16:46)
[2020-02-02 16:52] LABS: Glucose,Whole Blood 56 mg/dL (75-99)
[2020-02-02] MEDS: SODIUM CHLORIDE 0.9% 1,000 ML IV SCH (16:53)
[2020-02-02] MEDS: INSULIN ASPART (NovoLOG) 100 UNIT/ML VIAL SQ SCH (16:53)
[2020-02-02] MEDS ORDERED: DEXTROSE 50% SYRINGE 50 ML IVP ONE (16:55)
[2020-02-02 17:13] LABS: Glucose,Whole Blood 88 mg/dL (75-99)
[2020-02-02] MEDS ORDERED: PROPOFOL 10 MG/ML 20 ML VIAL IV ONE (17:21)
[2020-02-02] MEDS ORDERED: MIDAZOLAM 2 MG/2 ML VIAL ONE (17:21)
[2020-02-02] MEDS ORDERED: fentaNYL (PF) 50 MCG/ML 2 ML AMP ONE (17:21)
[2020-02-02] MEDS ORDERED: KETAMINE 10 MG/ML 20 ML VIAL ONE (17:21)
[2020-02-02] MEDS ORDERED: LIDOCAINE 1% INJ 10MG/ML (20 ML MDV) SQ ONE ×2 (17:53)
[2020-02-02] MEDS ORDERED: SODIUM HYPOCHLORITE 0.5% 480 ML BOT MISCELLANE ONE (18:15)
--- NOTE | 2020-02-02 18:22 | P.OP ---
Date of Procedure: 02/02/20 Description of Procedure: SURGEON: Neeru Patel DO CEILING INSTALLER: None PREOPERATIVE DIAGNOSIS: [Gangrene with abscess of right fifth toe]. POSTOPERATIVE DIAGNOSIS: [Same]. OPERATION: [Right fifth toe ray amputation ANESTHESIA: Mask with local ESTIMATED BLOOD LOSS: 10 mL SPECIMENS REMOVED: Right fifth toe, deep space abscess COMPLICATIONS: None immediately apparent OPERATIVE FINDINGS: Patient is a 84-year-old male with gangrene of his right fifth toe and suspected abscess. He had ankle-brachial indices are noncompressible do suggest some degree of arterial insufficiency given the waveforms. Risks and benefits were discussed with the daughter given the patient is hard of hearing and has dementia. It was discussed that he likely will need some revision of revascularization if the wound is not ill on an outpatient basis. At the time of surgery there was a significant pocket of abscess in the proximal foot it is copiously drained and cultures were obtained. The bone of the metatarsal of the amputation site appeared healthy DESCRIPTION OF PROCEDURE: This patient was brought to the operating room, and given local and IV sedation. The operative foot was prepped and draped in sterile manner. An incision was made at the base of the fifth toe deep into skin and fascia on plantar and dorsal aspect until we reached the head of the metatarsal bone. [This patient had osteomyelitis of the Fifth toe. The carried laterally and the metatarsal was cleared from periosteal tissues as well as ligaments and tendons. The fifth toe was removedAs arranged dictation transmetatarsal E.The rasp was used to Smooth the bone There was an abscess at the dorsal portion of the foot and a culture was taken. The necrotic-appearing tissues medially were debridement with curet. The wound was copiously irrigated. At the posterior portion of the wound, 3-0 nylon were utilized to reapproximate. Hemostasis was well controlled and pressure dressing was applied. Modesta De La O's wet to dry pressure dressing was placed The patient tolerated the procedure well.
[2020-02-02 18:48] LABS: Glucose,Whole Blood 79 mg/dL (75-99)
[2020-02-02 20:44] LABS: Glucose,Whole Blood 68 mg/dL (75-99)
[2020-02-02 20:55] LABS: Glucose,Whole Blood 72 mg/dL (75-99)
[2020-02-02] MEDS: INSULIN DETEMIR (LEVEMIR) 100 UNIT/ML SYR SQ SCH (21:04)
[2020-02-02] MEDS: DONEPEZIL 5 MG TAB PO SCH (21:11)
--- NOTE | 2020-02-02 23:37 | P.CONS ---
History of Present Illness - Reason for Consult Consult date: 02/02/20 Infected wound Requesting physician: Mundo Woodruff - Chief Complaint Right fifth toe nonhealing wound and discoloration x weeks - History of Present Illness Patient is 84-year-old male presenting to the hospital with right fifth toe wet gangrene and suspected abscess, apparently the patient did have a chronic nonhealing wound to the right fifth toe that has been going on for about a month and has been evaluated in outpatient setting in the wound care without any improvement patient was noticed to have worsening of his right fifth toe and subsequently was told to go to the ER patient is very hard of hearing but not specifically he did have some pain but is unable to eloborate it any further, the patient denies having any fever or any chills and no fever was reported on presentation to the hospital the patient did have white count of 15.4 that is up to 17.1 today, patient did have x-rays of the foot. Did shows increased soft tissue ulceration and subsequent his gas of the right lateral and plantar foot patient has been admitted to the hospital he was started on vancomycin and cefepime and infectious disease was consulted for further management of antibiotic therapy Review of Systems Positive points has been mentioned in HPI complete review could not be obtained because of his underlying mental status Past Medical History Past Medical History: Atrial Fibrillation, Heart Failure, COPD, Dementia, Eye Disorder, GERD/Reflux, Hearing Disorder / Deafness, Hyperlipidemia, Hy pertension, Myocardial Infarction (MO), Osteoarthritis (OA) Additional Past Medical History / Comment(s): GLAUCOMA. CHRONIC KIDNEY DISEASE Last Myocardial Infarction Date:: UNK History of Any Multi-Drug Resistant Organisms: MRSA, Other MDRO Year Discovered:: 12/21/19 MRSA MDRO Source:: MRSA FOOT Past Surgical History: Unable to Obtain, Hernia Repair Additional Past Surgical History / Comment(s): open heart surgery Past Anesthesia/Blood Transfusion Reactions: Unable to Obtain Past Psychological History: Unable to Obtain Additional Psychological History / Comment(s): DEMENTIA Smoking Status: Former smoker Past Alcohol Use History: None Reported Past Drug Use History: None Reported Additional Drug Use History / Comment(s): Daughter stated that patient smoked years ago - Past Family History Mother History Unknown: Yes Medications and Allergies Home Medications Medication Instructions Recorded Confirmed Type Bisacodyl 10 mg PO DAILY PRN 03/05/19 02/01/20 History HYDROcodone/APAP 5-325MG [[place] 1 tab PO QID 03/05/19 02/01/20 History 5-325] Insulin Glargine,Hum.rec.anlog 40 unit SQ HS@209903/05/19 02/01/20 History [Basaglar Kwikpen U-100] Magnesium Oxide [Mag-Ox] 400 mg PO DAILY@89903/05/19 02/01/20 History Metoprolol Tartrate [Lopressor] 100 mg PO BID@899,209903/05/19 02/01/20 History Acetaminophen [Tylenol Extra 500 mg PO Q8H PRN 02/01/20 02/01/20 History Strength] Diltiazem HCl [Diltiazem HCl 24Hr 240 mg PO DAILY@89902/01/20 02/01/20 History ER] Donepezil HCl [Aricept] 5 mg PO HS@209902/01/20 02/01/20 History Furosemide [Lasix] 40 mg PO DAILY@89902/01/20 02/01/20 History INSULIN ASPART (NovoLOG) [NovoLOG 5 unit SQ DAILY@169902/01/20 02/01/20 History (formulary)] Magnesium Hydroxide [Milk of 2,400 mg PO Q48H PRN 02/01/20 02/01/20 History Magnesia] Na Phos,M-B/Na Phos,Di-Ba [Fleet 133 ml RECTAL DAILY PRN 02/01/20 02/01/20 History Adult] Omeprazole 20 mg PO DAILY@59902/01/20 02/01/20 History Phenylephrine HCl/[place] Butter 1 supp RECTAL Q12H 02/01/20 02/01/20 History [Preparation H Suppository] Potassium Chloride 10 meq PO DAILY@89902/01/20 02/01/20 History Warfarin [Coumadin] 4.5 mg PO HS@209902/01/20 02/01/20 History bisacodyL [Bisacodyl] 10 mg RECTAL Q72H PRN 02/01/20 02/01/20 History guaiFENesin [guaiFENesin Oral 200 mg PO Q4H PRN 02/01/20 02/01/20 History Solution] polyethylene glycoL 3350 [Miralax] 17 gm PO DAILY@0900 02/01/20 02/01/20 History Allergies Allergy/AdvReac Type Severity Reaction Status Date / Time celecoxib [From Celebrex] Allergy Unknown Verified 02/01/20 11:31 gabapentin [From Neurontin] Allergy Unknown Verified 02/01/20 11:31 Physical Exam Vitals: Vital Signs Temp Pulse Resp BP Pulse Ox 02/02/20 07:00 97.9 F 73 16 149/80 98 02/02/20 02:00 97.6 F 64 141/72 97 02/01/20 19:32 97.8 F 54 L 14 133/69 96 02/01/20 15:00 97.6 F 80 18 135/79 96 Intake and Output 02/01/20 02/02/20 02/02/20 22:59 06:59 14:59 Intake Total 236 100 Output Total 200 200 900 Balance 36 -100 -900 Intake: Oral 236 100 Output: Urine 200 200 900 Other: Voiding Method Toilet Urinal # Voids 1 1 1 Weight 92.3 kg GENERAL DESCRIPTION: Elderly male lying in bed, no distress. No tachypnea or accessory muscle of respiration use. HEENT: Shows Pallor , no scleral icterus. Oral mucous membrane is dry. No pharyngeal erythema or thrush NECK: Trachea central, no thyromegaly. LUNGS: Unlabored breathing. Clear to auscultation anteriorly. No wheeze or crackle. HEART: S1, S2, regular rate and rhythm. No loud murmur ABDOMEN: Soft, no tenderness , guarding or rigidity, no organomegaly EXTREMITIES: Right fifth toe blackish discoloration some foul-smelling no drainage SKIN: No rash, no masses palpable. NEUROLOGICAL: The patient is awake, alert, oriented x2, mood and affect normal. Results CBC & Chem 7: 02/02/20 07:21 02/02/20 07:21 Labs: Abnormal Lab Results - Last 24 Hours (Table) 02/01/20 02/01/20 02/02/20 Range/Units 16:50 20:45 06:40 WBC (3.8-10.6) k/uL PT (9.0-12.0) sec INR (<1.2) Sodium (137-145) mmol/L Carbon Dioxide (22-30) mmol/L BUN (9-20) mg/dL Glucose (74-99) mg/dL POC Glucose (mg/dL) 139 H 102 H 56 L (75-99) mg/dL 02/02/20 02/02/20 02/02/20 Range/Units 07:21 07:21 07:21 WBC 17.1 H (3.8-10.6) k/uL PT 15.1 H (9.0-12.0) sec INR 1.5 H (<1.2) Sodium 136 L (137-145) mmol/L Carbon Dioxide 31 H (22-30) mmol/L BUN 27 H (9-20) mg/dL Glucose 105 H (74-99) mg/dL POC Glucose (mg/dL) (75-99) mg/dL Microbiology - Last 24 Hours (Table) 02/01/20 11:52 Blood Culture - Preliminary Blood No Growth after 24 hours Assessment and Plan Assessment: 1- patient with right fifth toe wet gangrene This patient with a chronic no nhealing wound for about a month failing outpatient therapy will need to cover for the gram-positive skin isaac with likely pathogen gram-negative infection less likely but not entirely excluded (1) Cellulitis of right foot Current Visit: Yes Status: Acute Code(s): L03.115 - CELLULITIS OF RIGHT LOWER LIMB SNOMED Code(s): 102932754 (2) Gangrene of toe of right foot Current Visit: Yes Status: Acute Code(s): I96 - GANGRENE, NOT ELSEWHERE CLASSIFIED SNOMED Code(s): 17650515700958196 Plan: 1- Vancomycin pharmacy to dose target trough of 15 while watching his kidney function and Vanco trough closely 2- cefepime 2 g every 12hr 3- await surgical debridement and deep cultures We will follow on clinical condition and cultures to further adjust medication if needed Thank you for this consultation will follow this patient with you Time with Patient: Greater than 30
[2020-02-03 02:25] LABS: Glucose,Whole Blood 72 mg/dL (75-99)
[2020-02-03] MEDS: PANTOPRAZOLE 40 MG TABLET PO SCH (06:17)
[2020-02-03 06:55] LABS: Glucose,Whole Blood 102 mg/dL (75-99)
[2020-02-03] MEDS: METOPROLOL TARTRATE 50 MG TAB PO SCH ×2 (07:42→21:06)
[2020-02-03] MEDS: DILTIAZEM CD 240 MG CAP.ER.24H PO SCH (07:43)
[2020-02-03] MEDS: HYDROcodone/APAP 5-325MG 1 EACH TAB PO SCH ×4 (07:43→21:06)
[2020-02-03] MEDS: CEFEPIME 2 GM in SODIUM CHLORIDE 0.9% 100 ML IVPB SCH ×2 (07:43→21:07)
[2020-02-03 07:53] LABS: INR 1.3 (<1.2); Prothrombin Time 12.7 sec (9.0-12.0)
[2020-02-03] MEDS: VANCOMYCIN 1,750 MG in SODIUM CHLORIDE 0.9% 500 ML 500 ML IVPB SCH (08:54)
[2020-02-03] MEDS ORDERED: HYDROcodone/APAP 5-325MG 1 EACH TAB PO STA (09:34)
--- NOTE | 2020-02-03 10:03 | P.PN ---
Subjective Progress Note Date: 02/03/20 Principal diagnosis: Right foot non-healing wound, osteomyelitis, gangrene of right 5th toe Patient was seen and examined at bedside with Dr. Langley. Patient is hard of hearing, is without complaints. However appears comfortable, in no acute distress. He has status postop day 1 for a right fifth toe amputation. Objective - Vital Signs Vital signs: Vital Signs Temp 97.8 F 02/03/20 07:44 Pulse 85 02/03/20 07:44 Resp 16 02/03/20 07:44 BP 156/86 02/03/20 07:44 Pulse Ox 96 02/03/20 07:44 Intake & Output 02/02/20 02/03/20 02/03/20 18:59 06:59 18:59 Intake Total 500 118 118 Output Total 1510 700 Balance -1010 -582 118 Weight 94.5 kg Intake: IV 500 Oral 118 118 Output: Urine 1500 700 Estimated Blood Loss 10 Other: Voiding Method Urinal Diaper Incontinent # Voids 1 - Exam General appearance: The patient is alert, oriented, in no acute distress. HET: Head is normocephalic and atraumatic. Neck: Supple without lymphadenopathy. Heart: S1 S2. Regular rate and rhythm. Lungs: No crackles or wheezes are heard. Abdomen: Soft, nontender, nondistended with bowel sounds. Extremities: Right lower extremity dressing clean dry and intact. Dressing was removed there are 3 intact sutures at the amputation site. Minimal bleeding. The width of the amputation site is 2.5 cm, length 54 mm, with a undermining of 12 mm Neurological: No focal deficits. Strength and sensation are grossly intact. - Labs CBC & Chem 7: 02/02/20 07:21 02/02/20 07:21 Labs: Abnormal Lab Results - Last 24 Hours (Table) 02/02/20 02/02/20 02/02/20 Range/Units 16:51 20:40 20:53 PT (9.0-12.0) sec INR (<1.2) POC Glucose (mg/dL) 56 L 68 L 72 L (75-99) mg/dL 02/03/20 02/03/20 02/03/20 Range/Units 02:23 06:49 06:53 PT 12.7 H (9.0-12.0) sec INR 1.3 H (<1.2) POC Glucose (mg/dL) 72 L 102 H (75-99) mg/dL Microbiology - Last 24 Hours (Table) 02/02/20 18:16 Gram Stain - Preliminary Foot - Right Wound Culture - Preliminary 02/02/20 18:16 Anaerobic Culture - Preliminary Foot - Right 02/01/20 11:52 Blood Culture - Preliminary Blood No Growth after 24 hours Assessment and Plan Assessment: 1. Postop day 1 status post right fifth toe amputation 2. Gangrene with abscess of right fifth toe 3. Nonhealing ulcer to the right foot 4. Atrial fibrillation 5. Congestive heart failure 6. Dementia Plan: Dressing removed. Recommend wound VAC at setting of 125 mmHg applied today. Continue to follow recommendations per infectious disease. Patient may be discharged once medically stable. Should follow-up with Dr. Patel in one week. The above dictated assessment and findings were discussed with Dr. Langley. The impression and plan of care have been directed as dictated.
[2020-02-03 10:09] LABS: Basophils # (A) 0.1 k/uL (0-0.2); Basophils % (A) 1 %; Eosinophils # (A) 0.4 k/uL (0-0.7); Eosinophils % (A) 3 %; HCT 42.6 % (39.0-53.0); HGB 13.2 gm/dL (13.0-17.5); Hypochromasia Slight; Lymphocytes # (A) 1.6 k/uL (1.0-4.8); Lymphocytes % (A) 10 %; MCH 27.1 pg (25.0-35.0); MCHC 30.9 g/dL (31.0-37.0); MCV 87.7 fL (80.0-100.0); Mean Platelet Volume 10.8; Monocytes % (A) 7 %; Neutrophils % (A) 79 %; Platelet Count 269 k/uL (150-450); RBC 4.86 m/uL (4.30-5.90); RDW 13.2 % (11.5-15.5); WBC 15.3 k/uL (3.8-10.6)
[2020-02-03 10:21] LABS: Calcium 8.4 mg/dL (8.4-10.2); Potassium 4.8 mmol/L (3.5-5.1)
[2020-02-03] MEDS: SODIUM CHLORIDE 0.9% 1,000 ML IV SCH (10:54)
[2020-02-03 11:56] LABS: Glucose,Whole Blood 154 mg/dL (75-99)
--- NOTE | 2020-02-03 15:49 | P.PN ---
Subjective Progress Note Date: 02/03/20 Principal diagnosis: Patient is a pleasant 84-year-old male was transferred here from a subacute rehab because of nonhealing wound on the right leg. Because of the hearing problems patient is a poor historian but he did complain that he has pain in the right foot. Denied any fever chills. Patient is a residential resident and mostly bedbound. Patient had history of MRSA does take Coumadin INR of 2.9, patient has been of peripancreatic to baseline is not available at this time. Patient was started on broad-spectrum antibiotics vancomycin and cefepime infectious disease and vascular surgery was consulted. 02/02/2020 Patient is seen and evaluated and follow-up currently scheduled to undergo amputation of the fifth right toe with Dr. Patel today. Patient continues to have some right foot pain and discomfort noted. Patient is extremely hard of hearing although responds appropriately to questions and commands. Patient is currently maintained on cefepime along with vancomycin and will continue at this time. Patient underwent arterial study of the right lower extremity showing moderate bilateral fem-pop disease, poor toe waveform and suspicious for significant fem-pop disease although vasospasm can be a component of it. Patient does have gangrene of the right fifth toe. Review of systems: Constitutional: No reports of fatigue, fever, or chills Cardiovascular: No reports of chest pain or palpitations Respiratory: No reports of shortness of breath or cough GI: No reports of nausea, vomiting, or diarrhea : No reports of dysuria or retention Neurovascular: No reports of weakness or numbness All medications have been reviewed 02/03/2020 Patient is seen and evaluated and follow-up status post right fifth toe amputation along with debridement and is being closely monitored. Patient is maintained on IV antibiotics in the form of cefepime and vancomycin and will continue at this time. Infectious disease is following. Awaiting culture finalization to determine possible antibiotics upon discharge. Vascular surgery also following closely. Patient is extremely hard of hearing although denies any chest pain, shortness of breath, or palpitations. Patient is afebrile. No reports of nausea or vomiting and patient is tolerating diet. Patient will be following up with vascular surgery in the outpatient setting upon discharge. Case management and social work also following as patient will be returning to [facility] once discharged. Current INR today is 1.3 and will resume Coumadin with pharmacy to dose. Will repeat a.m. labs and monitor INR closely. Objective - Vital Signs Vital signs: Vital Signs Temp 97.8 F 02/03/20 07:44 Pulse 85 02/03/20 07:44 Resp 16 02/03/20 07:44 BP 156/86 02/03/20 07:44 Pulse Ox 96 02/03/20 07:44 Intake & Output 02/02/20 02/03/20 02/03/20 18:59 06:59 18:59 Intake Total 500 118 118 Output Total 1510 700 Balance -1010 -582 118 Weight 94.5 kg Intake: IV 500 Oral 118 118 Output: Urine 1500 700 Estimated Blood Loss 10 Other: Voiding Method Urinal Diaper Incontinent # Voids 1 - Exam GENERAL: The patient is alert and oriented x3, not in any acute distress. Well developed, well nourished. Extremely hard of hearing HEENT: Pupils are round and equally reacting to light. EOMI. No scleral icterus. No conjunctival pallor. Normocephalic, atraumatic. No pharyngeal erythema. No thyromegaly. CARDIOVASCULAR: S1 and S2 present. No murmurs, rubs, or gallops. PULMONARY: Chest is clear to auscultation, no wheezing or crackles. ABDOMEN: Soft, nontender, nondistended, normoactive bowel sounds. No palpable organomegaly. MUSCULOSKELETAL: No joint swelling or deformity. EXTREMITIES: No cyanosis, clubbing, there is significant bilateral lower extremity edema and right lower extremity cellulitis going up to the ankles, improved. Recent right fifth toe amputation with surgical dressings are dry and intact. NEUROLOGICAL: Gross neurological examination did not reveal any focal deficits. SKIN: No rashes. - Labs CBC & Chem 7: 02/03/20 06:49 02/03/20 06:49 Labs: Abnormal Lab Results - Last 24 Hours (Table) 02/02/20 02/02/20 02/02/20 Range/Units 16:51 20:40 20:53 WBC (3.8-10.6) k/uL MCHC (31.0-37.0) g/dL Neutrophils # (1.3-7.7) k/uL PT (9.0-12.0) sec INR (<1.2) Carbon Dioxide (22-30) mmol/L BUN (9-20) mg/dL POC Glucose (mg/dL) 56 L 68 L 72 L (75-99) mg/dL 02/03/20 02/03/20 02/03/20 Range/Units 02:23 06:49 06:49 WBC 15.3 H (3.8-10.6) k/uL MCHC 30.9 L (31.0-37.0) g/dL Neutrophils # 12.0 H (1.3-7.7) k/uL PT 12.7 H (9.0-12.0) sec INR 1.3 H (<1.2) Carbon Dioxide (22-30) mmol/L BUN (9-20) mg/dL POC Glucose (mg/dL) 72 L (75-99) mg/dL 02/03/20 02/03/20 02/03/20 Range/Units 06:49 06:53 11:54 WBC (3.8-10.6) k/uL MCHC (31.0-37.0) g/dL Neutrophils # (1.3-7.7) k/uL PT (9.0-12.0) sec INR (<1.2) Carbon Dioxide 32 H (22-30) mmol/L BUN 21 H (9-20) mg/dL POC Glucose (mg/dL) 102 H 154 H (75-99) mg/dL Microbiology - Last 24 Hours (Table) 02/02/20 18:16 Gram Stain - Preliminary Foot - Right Wound Culture - Preliminary 02/02/20 18:16 Anaerobic Culture - Preliminary Foot - Right 02/01/20 11:52 Blood Culture - Preliminary Blood No Growth after 24 hours Assessment and Plan Assessment: -Infection cellulitis and nonhealing ulcer of the right foot: Patient underwent right fifth toe amputation with vascular surgery, postop day #1 -Chronic atrial fibrillation on Coumadin. INR today is 1.3 and will repeat to monitor closely. Coumadin is being resumed. -Bilateral lower extremity edema probably venous stasis will order the Eduardo bandages Lasix will be held because of renal failure -Possibly acute renal failure unsure whether patient has chronic kidney disease, Lasix will be held, improving, current creatinine is 1.03 with a BUN of 21. -COPD without any acute exacerbation -Generalized deconditioning: Patient is mostly bedbound does have significant atrophy of both legs no focal weakness but this does have significant generalized weakness -Hypertension -Hyperlipidemia -Gastroesophageal reflux disease -History of MRSA in the foot in the past -GI prophylaxis: Protonix Plan: Continue current medications, management, and symptomatic treatment. Patient is maintained on IV antibiotics in the form of vancomycin along with cefepime and will continue at this time. infectious disease is following. Awaiting on culture finalization. Patient underwent right fifth toe amputation postop day #1. Coumadin is being resumed. Will repeat a.m. labs. Further recommendations to follow. social work also following as patient will be returning to [facility] once stabilized and discharged.
--- NOTE | 2020-02-03 16:32 | PN ---
PROGRESS NOTE DATE OF SERVICE: 02/03/2020 REASON FOR FOLLOWUP: Right diabetic foot infection. INTERVAL HISTORY: The patient is currently afebrile. The patient is breathing comfortably. He remains pleasantly confused but not agitated. Patient denies having any nausea, vomiting or abdominal pain or diarrhea. PHYSICAL EXAMINATION: Blood pressure is 156/86, pulse of 85, temperature 97.8. He is 96% on 2 L nasal cannula. General description is an elderly male lying in bed in no distress. RESPIRATORY SYSTEM: Unlabored breathing. Clear to auscultation anteriorly. HEART: S1, S2. Regular rate and rhythm. ABDOMEN: Soft. No tenderness. Right foot is dressed up. No obvious drainage on the dressing. LABS: Hemoglobin is 13.2, white count 15.3, BUN of 21, creatinine 1.03. DIAGNOSTIC IMPRESSION AND PLAN: Patient right fifth toe wet gangrene, status post amputation. Wound cultures are pending. Patient is covered with cefepime and vancomycin; to continue, adjusting antibiotics further based on the culture report. Continue with supportive care. MMODL / IJN: [id number] /
[2020-02-03 16:47] LABS: Glucose,Whole Blood 160 mg/dL (75-99)
[2020-02-03] MEDS: INSULIN ASPART (NovoLOG) 100 UNIT/ML VIAL SQ SCH (17:25)
[2020-02-03] MEDS ORDERED: WARFARIN 5 MG TAB PO ONE (18:00)
[2020-02-03 20:28] LABS: Glucose,Whole Blood 137 mg/dL (75-99)
[2020-02-03] MEDS: DONEPEZIL 5 MG TAB PO SCH (21:06)
[2020-02-03] MEDS: INSULIN DETEMIR (LEVEMIR) 100 UNIT/ML SYR SQ SCH (21:07)
[2020-02-04] MEDS: PANTOPRAZOLE 40 MG TABLET PO SCH (05:44)
[2020-02-04 07:36] LABS: Glucose,Whole Blood 67 mg/dL (75-99)
[2020-02-04] MEDS ORDERED: VANCOMYCIN TROUGH DUE 1 EACH MISC MISCELLANE ONE (08:00)
[2020-02-04] MEDS: METOPROLOL TARTRATE 50 MG TAB PO SCH ×2 (08:08→21:38)
[2020-02-04] MEDS: CEFEPIME 2 GM in SODIUM CHLORIDE 0.9% 100 ML IVPB SCH ×2 (08:08→21:38)
[2020-02-04] MEDS: DILTIAZEM CD 240 MG CAP.ER.24H PO SCH (08:09)
[2020-02-04] MEDS: HYDROcodone/APAP 5-325MG 1 EACH TAB PO SCH ×4 (08:09→21:39)
[2020-02-04 08:54] LABS: Glucose,Whole Blood 103 mg/dL (75-99)
[2020-02-04 08:58] LABS: Basophils # (A) 0.1 k/uL (0-0.2); Basophils % (A) 1 %; Eosinophils # (A) 0.6 k/uL (0-0.7); Eosinophils % (A) 3 %; HCT 44.6 % (39.0-53.0); HGB 13.4 gm/dL (13.0-17.5); Hypochromasia Slight; Lymphocytes # (A) 1.7 k/uL (1.0-4.8); Lymphocytes % (A) 11 %; MCH 26.5 pg (25.0-35.0); MCHC 30.1 g/dL (31.0-37.0); MCV 87.9 fL (80.0-100.0); Mean Platelet Volume 9.4; Monocytes # (A) 1.2 k/uL (0-1.0); Monocytes % (A) 8 %; Neutrophils # (A) 12.6 k/uL (1.3-7.7); Neutrophils % (A) 77 %; Platelet Count 290 k/uL (150-450); RBC 5.08 m/uL (4.30-5.90); RDW 13.2 % (11.5-15.5); WBC 16.4 k/uL (3.8-10.6)
[2020-02-04 09:10] LABS: INR 1.2 (<1.2); Prothrombin Time 11.8 sec (9.0-12.0)
--- NOTE | 2020-02-04 09:24 | P.PN ---
Subjective Progress Note Date: 02/04/20 Principal diagnosis: Right foot non-healing wound, osteomyelitis, gangrene of right 5th toe Seen and examined at the bedside. Patient is sleeping but easily arousable. He appears comfortable. No reports of any acute changes through the night. No fever or chills. He is status postop day 2 for a right foot fifth toe amputation. He continues with IV antibiotics. Objective - Vital Signs Vital signs: Vital Signs Temp 98.0 F 02/04/20 00:33 Pulse 86 02/04/20 00:33 Resp 15 02/04/20 00:33 BP 152/76 02/04/20 00:33 Pulse Ox 97 02/04/20 00:33 Intake & Output 02/03/20 02/04/20 02/04/20 18:59 06:59 18:59 Intake Total 236 Output Total 1000 Balance 236 -1000 Weight 94 kg Intake: Oral 236 Output: Urine 1000 Other: Voiding Method Urinal Diaper Incontinent # Voids 3 - Exam General appearance: The patient is alert, confused, in no acute distress. HET: Head is normocephalic and atraumatic. Neck: Supple without lymphadenopathy. Heart: S1 S2. Regular rate and rhythm. Lungs: No crackles or wheezes are heard. Abdomen: Soft, nontender, nondistended with bowel sounds. Extremities: Right lower extremity dressing clean dry and intact with intact wound VAC with good suction. Neurological: Sleepy but easily arousable. Alert, somewhat confused but that has been his baseline. - Labs CBC & Chem 7: 02/04/20 07:52 02/03/20 06:49 Labs: Abnormal Lab Results - Last 24 Hours (Table) 02/03/20 02/03/20 02/03/20 Range/Units 06:49 06:49 11:54 WBC 15.3 H (3.8-10.6) k/uL MCHC 30.9 L (31.0-37.0) g/dL Neutrophils # 12.0 H (1.3-7.7) k/uL Monocytes # (0-1.0) k/uL INR (<1.2) Carbon Dioxide 32 H (22-30) mmol/L BUN 21 H (9-20) mg/dL POC Glucose (mg/dL) 154 H (75-99) mg/dL 02/03/20 02/03/20 02/04/20 Range/Units 16:43 20:25 07:34 WBC (3.8-10.6) k/uL MCHC (31.0-37.0) g/dL Neutrophils # (1.3-7.7) k/uL Monocytes # (0-1.0) k/uL INR (<1.2) Carbon Dioxide (22-30) mmol/L BUN (9-20) mg/dL POC Glucose (mg/dL) 160 H 137 H 67 L (75-99) mg/dL 02/04/20 02/04/20 02/04/20 Range/Units 07:52 07:52 08:52 WBC 16.4 H (3.8-10.6) k/uL MCHC 30.1 L (31.0-37.0) g/dL Neutrophils # 12.6 H (1.3-7.7) k/uL Monocytes # 1.2 H (0-1.0) k/uL INR 1.2 H (<1.2) Carbon Dioxide (22-30) mmol/L BUN (9-20) mg/dL POC Glucose (mg/dL) 103 H (75-99) mg/dL Microbiology - Last 24 Hours (Table) 02/01/20 11:52 Blood Culture - Preliminary Blood No Growth after 48 hours 02/02/20 18:16 Gram Stain - Preliminary Foot - Right Wound Culture - Preliminary Assessment and Plan Assessment: 1. Postop day 2 status post right fifth toe amputation 2. Gangrene with abscess of right fifth toe 3. Nonhealing ulcer to the right foot 4. Atrial fibrillation 5. Congestive heart failure 6. Dementia Plan: Continue wound VAC at setting of 125 mmHg Continue to follow recommendations per infectious disease. Patient may be discharged once medically stable. Should follow-up with Dr. Patel in one week. The above dictated assessment and findings were discussed with Dr. Patel. The impression and plan of care have been directed as dictated.
[2020-02-04] MEDS: VANCOMYCIN 1,750 MG in SODIUM CHLORIDE 0.9% 500 ML 500 ML IVPB SCH (09:25)
[2020-02-04 09:26] LABS: Calcium 8.6 mg/dL (8.4-10.2); Potassium 4.5 mmol/L (3.5-5.1)
[2020-02-04 12:03] LABS: Glucose,Whole Blood 83 mg/dL (75-99)
[2020-02-04] MEDS: SODIUM CHLORIDE 0.9% 1,000 ML IV SCH (14:02)
--- NOTE | 2020-02-04 14:06 | P.PN ---
Subjective Progress Note Date: 02/04/20 Principal diagnosis: This is an 84-year-old male who was recently transferred from [facility] for nonhealing wound of the right leg and continued ongoing right foot pain and discomfort and is being closely monitored. Patient was found to have right fifth toe and green and underwent amputation along with deep debridement with vascular surgery. Vascular surgery along with infectious disease are following. Patient is currently maintained on IV antibiotics in the form of cefepime and vancomycin and will continue while awaiting for cultures to finalized. Coumadin was reinitiated and current INR is 1.2. We'll continue to monitor labs closely. White blood count remains slightly elevated at 16.4. Sodium is 139, potassium is 4.5, BUN is 23 with a creatinine of 1.12. Blood sugars being monitored closely and will continue with current regimen. Case management and social work following as patient will be returning to [facility] once stabilized and discharged. Review of systems: Constitutional: No reports of fatigue, fever, or chills Cardiovascular: No reports of chest pain or palpitations Respiratory: No reports of shortness of breath or cough GI: No reports of nausea, vomiting, or diarrhea : No reports of dysuria or retention Neurovascular: No reports of weakness or numbness All medications have been reviewed Objective - Vital Signs Vital signs: Vital Signs Temp 98.6 F 02/04/20 08:24 Pulse 90 02/04/20 08:24 Resp 16 02/04/20 08:24 BP 126/72 02/04/20 08:24 Pulse Ox 94 L 02/04/20 08:24 Intake & Output 02/03/20 02/04/20 02/04/20 18:59 06:59 18:59 Intake Total 236 180 Output Total 1000 Balance 236 -1000 180 Weight 94 kg Intake: Oral 236 180 Output: Urine 1000 Other: Voiding Method Urinal Diaper Incontinent # Voids 3 - Exam GENERAL: The patient is alert and oriented x3, not in any acute distress. Well developed, well nourished. Extremely hard of hearing. Temp is 98.6F pulse is 90, respirations are 16, blood pressure 126/72, oxygen saturation is 94% on room air. HEENT: Pupils are round and equally reacting to light. EOMI. No scleral icterus. No conjunctival pallor. Normocephalic, atraumatic. No pharyngeal erythema. No thyromegaly. CARDIOVASCULAR: S1 and S2 present. No murmurs, rubs, or gallops. PULMONARY: Manage breath sounds bilaterally with no wheezing or crackles. ABDOMEN: Soft, nontender, nondistended, normoactive bowel sounds. No palpable o rganomegaly. MUSCULOSKELETAL: No joint swelling or deformity. EXTREMITIES: No cyanosis, clubbing, there is significant bilateral lower extremity edema and right lower extremity cellulitis going up to the ankles, improved. Recent right fifth toe amputation with surgical dressings are dry and intact. Wound VAC noted NEUROLOGICAL: Gross neurological examination did not reveal any focal deficits. SKIN: No rashes. - Labs CBC & Chem 7: 02/04/20 07:52 02/04/20 07:52 Labs: Abnormal Lab Results - Last 24 Hours (Table) 02/03/20 02/03/20 02/04/20 Range/Units 16:43 20:25 07:34 WBC (3.8-10.6) k/uL MCHC (31.0-37.0) g/dL Neutrophils # (1.3-7.7) k/uL Monocytes # (0-1.0) k/uL INR (<1.2) Carbon Dioxide (22-30) mmol/L BUN (9-20) mg/dL Glucose (74-99) mg/dL POC Glucose (mg/dL) 160 H 137 H 67 L (75-99) mg/dL 02/04/20 02/04/20 02/04/20 Range/Units 07:52 07:52 07:52 WBC 16.4 H (3.8-10.6) k/uL MCHC 30.1 L (31.0-37.0) g/dL Neutrophils # 12.6 H (1.3-7.7) k/uL Monocytes # 1.2 H (0-1.0) k/uL INR 1.2 H (<1.2) Carbon Dioxide 34 H (22-30) mmol/L BUN 23 H (9-20) mg/dL Glucose 53 L (74-99) mg/dL POC Glucose (mg/dL) (75-99) mg/dL 02/04/20 Range/Units 08:52 WBC (3.8-10.6) k/uL MCHC (31.0-37.0) g/dL Neutrophils # (1.3-7.7) k/uL Monocytes # (0-1.0) k/uL INR (<1.2) Carbon Dioxide (22-30) mmol/L BUN (9-20) mg/dL Glucose (74-99) mg/dL POC Glucose (mg/dL) 103 H (75-99) mg/dL Microbiology - Last 24 Hours (Table) 02/01/20 11:52 Blood Culture - Preliminary Blood No Growth after 48 hours 02/02/20 18:16 Gram Stain - Preliminary Foot - Right Wound Culture - Preliminary Assessment and Plan Assessment: -Infection cellulitis and nonhealing ulcer of the right foot: Patient underwent right fifth toe amputation with vascular surgery, postop day #2 -Chronic atrial fibrillation on Coumadin. INR today is 1.2 and will repeat to monitor closely. Coumadin resumed. -Bilateral lower extremity edema probably venous stasis will order the Eduardo bandages Lasix will be held because of renal failure -Possibly acute renal failure unsure whether patient has chronic kidney disease, Lasix will be held, improving, current creatinine is 1.12 with a BUN of 23. 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 Patient is maintained on IV antibiotics in the form of vancomycin along with cefepime and will continue at this time. infectious disease is following. Awaiting on culture finalization. Patient underwent right fifth toe amputation postop day #2. Coumadin resumed. Current INR is 1.2. Will repeat a.m. labs. Further recommendations to follow. social work also following as patient will be return ing to [facility] once stabilized and discharged.
--- NOTE | 2020-02-04 16:16 | PN ---
PROGRESS NOTE DATE OF SERVICE: 02/04/2020 REASON FOR FOLLOWUP: Right diabetic foot infection with wet gangrene, status post right fifth toe amputation. INTERVAL HISTORY: The patient is currently afebrile. The patient remains pleasantly confused, unable to provide any history. No vomiting or diarrhea has been reported or any worsening pain in the right foot. PHYSICAL EXAMINATION: Blood pressure 126/70 with a pulse of 90, temperature 98.6. He is 94% on room air. General description is an elderly male lying in bed in no distress. RESPIRATORY SYSTEM: Unlabored breathing. Clear to auscultation anteriorly. HEART: S1, S2. Regular rate and rhythm. ABDOMEN: Soft. No tenderness. Right foot lateral border wound base looks clean. However, the bone is palpable. LABS: Hemoglobin 13.4, white count 16.4, BUN of 23. Creatinine is 1.12. Wound culture now showing a Gram-negative. DIAGNOSTIC IMPRESSION AND PLAN: Patient with right diabetic foot infection with wet gangrene of the right fifth toe, status post fifth toe amputation. The wound exposed pus, likely osteomyelitis, acute. We will keep the patient on vancomycin and cefepime. Discharge antibiotic to depend on the culture report. He will likely need a PICC line. Local care to continue with wound V.A.C. Continue with supportive care. MMODL / IJN: [id number] /
[2020-02-04 17:28] LABS: Glucose,Whole Blood 108 mg/dL (75-99)
[2020-02-04] MEDS: INSULIN ASPART (NovoLOG) 100 UNIT/ML VIAL SQ SCH (17:48)
[2020-02-04] MEDS ORDERED: WARFARIN 5 MG TAB PO ONE (18:00)
[2020-02-04 20:34] LABS: Glucose,Whole Blood 199 mg/dL (75-99)
[2020-02-04] MEDS: INSULIN DETEMIR (LEVEMIR) 100 UNIT/ML SYR SQ SCH (21:39)
[2020-02-04] MEDS: DONEPEZIL 5 MG TAB PO SCH (21:40)
[2020-02-05] MEDS: PANTOPRAZOLE 40 MG TABLET PO SCH (05:41)
[2020-02-05 07:22] LABS: Glucose,Whole Blood 56 mg/dL (75-99)
[2020-02-05 07:47] LABS: Glucose,Whole Blood 79 mg/dL (75-99)
[2020-02-05 07:55] LABS: INR 1.3 (<1.2); Prothrombin Time 12.7 sec (9.0-12.0)
[2020-02-05 07:56] LABS: Basophils # (A) 0.1 k/uL (0-0.2); Basophils % (A) 1 %; Eosinophils # (A) 0.6 k/uL (0-0.7); Eosinophils % (A) 4 %; HCT 40.6 % (39.0-53.0); HGB 12.7 gm/dL (13.0-17.5); Lymphocytes # (A) 2.1 k/uL (1.0-4.8); Lymphocytes % (A) 14 %; MCH 27.3 pg (25.0-35.0); MCHC 31.4 g/dL (31.0-37.0); MCV 87.1 fL (80.0-100.0); Mean Platelet Volume 9.4; Monocytes % (A) 7 %; Neutrophils % (A) 73 %; Platelet Count 274 k/uL (150-450); RBC 4.67 m/uL (4.30-5.90); RDW 13.2 % (11.5-15.5); WBC 14.9 k/uL (3.8-10.6)
[2020-02-05 08:12] LABS: Calcium 8.5 mg/dL (8.4-10.2); Potassium 4.1 mmol/L (3.5-5.1)
[2020-02-05] MEDS: DILTIAZEM CD 240 MG CAP.ER.24H PO SCH (09:17)
[2020-02-05] MEDS: HYDROcodone/APAP 5-325MG 1 EACH TAB PO SCH ×4 (09:17→23:52)
[2020-02-05] MEDS: METOPROLOL TARTRATE 50 MG TAB PO SCH ×2 (09:17→20:47)
[2020-02-05] MEDS: CEFEPIME 2 GM in SODIUM CHLORIDE 0.9% 100 ML IVPB SCH ×2 (09:18→20:46)
[2020-02-05] MEDS: VANCOMYCIN 1,750 MG in SODIUM CHLORIDE 0.9% 500 ML 500 ML IVPB SCH (10:06)
[2020-02-05 11:55] LABS: Glucose,Whole Blood 104 mg/dL (75-99)
[2020-02-05] MEDS: SODIUM CHLORIDE 0.9% 1,000 ML IV SCH (12:35)
[2020-02-05 12:56] VITALS: BMI 31.9
[2020-02-05 16:44] LABS: Glucose,Whole Blood 87 mg/dL (75-99)
[2020-02-05] MEDS: INSULIN ASPART (NovoLOG) 100 UNIT/ML VIAL SQ SCH (16:47)
--- NOTE | 2020-02-05 16:54 | PN ---
PROGRESS NOTE DATE OF SERVICE: 02/05/2020 REASON FOR FOLLOWUP: Right diabetic foot infection with underlying osteomyelitis. INTERVAL HISTORY: Patient is currently afebrile. Patient is breathing comfortably. The patient denies having any chest pain or cough. No abdominal pain. Pain not worsening in the right foot. PHYSICAL EXAMINATION: Blood pressure is 131/85 with a pulse of 109 temperature 98.5, saturating 96% on 2 L nasal cannula. GENERAL DESCRIPTION: An elderly male lying in bed in no distress. RESPIRATORY SYSTEM: Unlabored breathing, clear to auscultation anteriorly. HEART: S1, S2. Regular rate and rhythm. ABDOMEN: Soft, nontender. EXTREMITIES: Right foot is currently dressed up. No obvious drainage on the dressing. LABS: Hemoglobin is 12.7, white count 14.9, BUN of 22, creatinine 0.93. DIAGNOSTIC IMPRESSION AND PLAN: Patient with right diabetic foot infection with wet gangrene of the 5th toe, status post right 5th toe amputation. Culture now showing Morganella in addition to Staph aureus. is pending. The patient is covered with cefepime and vancomycin. Continue local wound care with wound VAC. Continue supportive care. MMODL / IJN: [id number] /
[2020-02-05] MEDS ORDERED: WARFARIN 7.5 MG TAB PO ONE (18:00)
--- NOTE | 2020-02-05 18:32 | PN ---
PROGRESS NOTE DATE OF SERVICE: 02/05/2020 This 84-year-old gentleman admitted with infection, cellulitis of the nonhealing ulcers of the right foot, underwent right 5th toe amputation vascular surgery. The patient is also having also wound VAC. Vascular surgery and Infectious Disease following the patient closely. Culture showed Morganella morganii and as well as presumptive Staph aureus. Patient being closely monitored. Patient is mildly confused. Past medical history reviewed. REVIEW OF SYSTEMS: CARDIOVASCULAR SYSTEM: No angina. RESPIRATION as mentioned earlier. GI: As mentioned earlier. no dysuria. Nervous system: No numbness or weakness. CURRENT MEDICATIONS: Reviewed and include: 1. Tylenol p.r.n. 2. [place]. 3. Dulcolax. 4. Cefepime. 5. Cardizem. 6. Aricept. 7. Robitussin. 8. NovoLog. 9. Levemir. 10.Milk of magnesia. 11.Lopressor. 12.Narcan. 13.Protonix. 14.MiraLAX. 15.Coumadin. 16.Doses reviewed. PHYSICAL EXAM: Patient is alert, oriented x3. Pulse 68, blood pressure 147/80, respiration 19, temperature 98.2, pulse ox 98% on 2 L. HEENT: Conjunctivae normal. NECK: No JVD. CARDIOVASCULAR: S1, S2 muffled. RESPIRATIONS: Breath sounds diminished in the bases. A few scattered rhonchi and crackles. ABDOMEN: Soft, nontender. LEGS status post surgery on the right foot. Wound VAC in place. LAB STUDIES: WBC 14.9, hemoglobin 12.7, INR 1.3, glucose 49, fluctuating. ASSESSMENT: 1. Acute cellulitis, nonhealing ulcer of the right foot, status post right 5th toe amputation and wound VAC application. 2. Change in mental status, metabolic encephalopathy, multifactorial. 3. Chronic atrial fibrillation. 4. Bilateral lower extremity edema. 5. Acute renal failure. 6. Chronic obstructive pulmonary disease. 7. Generalized deconditioning. 8. Hypertension. 9. Hyperlipidemia. 10.Gastroesophageal reflux disease. 11.History of congestive heart failure. 12.History of myocardial infarction. 13.History of glaucoma. 14.History of dementia. 15.Diabetes mellitus, type 2. 16.FULL CODE. RECOMMENDATIONS AND DISCUSSION: This 84-year-old gentleman who presented with multiple complex medical issues, we will monitor the patient closely. Continue the current medications, and symptomatic treatment. I would recommend to reduce the dose of insulin and continue to monitor. Guarded prognosis because of multiple complex medical issues. Further recommendations to follow. We will stop the daily dose of insulin and cut down the Levemir to 20 units and continue to monitor. PT/OT evaluation, possible ECF rehab. MACHO / STEPHEN: [id number] /
[2020-02-05 20:29] LABS: Glucose,Whole Blood 249 mg/dL (75-99)
[2020-02-05] MEDS: DONEPEZIL 5 MG TAB PO SCH (20:46)
[2020-02-05] MEDS: INSULIN DETEMIR (LEVEMIR) 100 UNIT/ML SYR SQ SCH (20:47)
[2020-02-06] MEDS: VANCOMYCIN 1,750 MG in SODIUM CHLORIDE 0.9% 500 ML 500 ML IVPB SCH ×2 (02:02→16:40)
[2020-02-06] MEDS: PANTOPRAZOLE 40 MG TABLET PO SCH (05:59)
[2020-02-06 07:20] LABS: Glucose,Whole Blood 95 mg/dL (75-99)
[2020-02-06] MEDS: MAGNESIUM OXIDE 400 MG TAB PO SCH (08:08)
[2020-02-06] MEDS: DILTIAZEM CD 240 MG CAP.ER.24H PO SCH (08:08)
[2020-02-06] MEDS: METOPROLOL TARTRATE 50 MG TAB PO SCH ×2 (08:08→21:56)
[2020-02-06] MEDS: FUROSEMIDE 40 MG TAB PO SCH (08:08)
[2020-02-06] MEDS: HYDROcodone/APAP 5-325MG 1 EACH TAB PO SCH ×4 (08:08→21:57)
[2020-02-06] MEDS: CEFEPIME 2 GM in SODIUM CHLORIDE 0.9% 100 ML IVPB SCH ×2 (08:09→21:56)
[2020-02-06 09:12] LABS: INR 1.4 (<1.2); Prothrombin Time 14.3 sec (9.0-12.0)
[2020-02-06 11:42] LABS: Glucose,Whole Blood 198 mg/dL (75-99)
[2020-02-06] MEDS: SODIUM CHLORIDE 0.9% 1,000 ML IV SCH (15:22)
[2020-02-06 16:38] LABS: Glucose,Whole Blood 197 mg/dL (75-99)
[2020-02-06] MEDS ORDERED: metroNIDAZOLE 500 MG TAB PO SCH (17:15)
[2020-02-06] MEDS ORDERED: WARFARIN 7.5 MG TAB PO ONE (18:00)
[2020-02-06 20:16] LABS: Glucose,Whole Blood 235 mg/dL (75-99)
[2020-02-06] MEDS: metroNIDAZOLE 500 MG TAB PO SCH (21:56)
[2020-02-06] MEDS: INSULIN DETEMIR (LEVEMIR) 100 UNIT/ML SYR SQ SCH (21:57)
[2020-02-06] MEDS: DONEPEZIL 5 MG TAB PO SCH (21:58)
--- NOTE | 2020-02-07 00:07 | PN ---
PROGRESS NOTE DATE OF SERVICE: 02/06/2020 This 84-year-old gentleman who was admitted with acute cellulitis and nonhealing ulcers of the right foot also had a wound VAC applied. No chest pain. No palpitations. No fever. The cultures are showing Morganella morganii and MRSA. The patient is on IV vancomycin. No chest pain or palpitation. PHYSICAL EXAMINATION: On exam, alert and oriented x2. Pulse 62, blood pressure 135/70, respiration 20, temperature 98.4, pulse ox 91% on 3 L. HEENT: Conjunctivae normal. Oral mucosa moist. NECK: No JVD. No carotid bruit. No lymph node enlargement. CARDIOVASCULAR: S1, S2 muffled. RESPIRATORY: Breath sounds diminished at the bases. No rhonchi, no crackles. ABDOMEN: Soft, nontender. LEGS: Wound VAC and surgery. NERVOUS SYSTEM: No focal deficits. LABS: INR 1.4, otherwise WBC 14.9. Sodium is 137. ASSESSMENT: 1. Acute cellulitis, nonhealing ulcer of the right foot, status post right fifth toe amputation, wound VAC application. 2. Change in mental status, metabolic encephalopathy, multifactorial. 3. Morganella morganii and methicillin-resistant Staphylococcus aureus from the cultures. 4. Chronic atrial fibrillation. 5. Bilateral lower extremity edema. 6. Acute renal failure. 7. Chronic obstructive pulmonary disease. 8. Generalized deconditioning. 9. Hypertension. 10.Hyperlipidemia. 11.Gastroesophageal reflux disease. 12.History of congestive heart failure. 13.History of myocardial infarction. 14.History of glaucoma. 15.History of dementia. 16.Diabetes mellitus type 2. 17.FULL CODE. RECOMMENDATIONS AND DISCUSSION: Recommend to continue the current medications. Continue with symptomatic treatment. Continue with antibiotics. Closely follow with Vascular Surgery and Infectious Disease. Continue the wound VAC. Prognosis guarded because of multiple complex medical issues. Further recommendations to follow. MMODL / IJN: [id number] /
--- NOTE | 2020-02-07 01:04 | PN ---
PROGRESS NOTE DATE OF SERVICE: 02/06/2020 REASON FOR FOLLOWUP: Right diabetic foot infection with underlying osteomyelitis, acute. INTERVAL HISTORY: The patient is currently afebrile. The patient remains to be significantly lethargic and unable to provide any history. No vomiting or diarrhea or any change reported by nursing staff. PHYSICAL EXAMINATION: Blood pressure 135/70 with a pulse of 62, temperature 98.4. General description is an elderly male lying in bed in no distress. RESPIRATORY SYSTEM: Unlabored breathing, clear to auscultation anteriorly. HEART: S1, S2. Regular rate and rhythm. ABDOMEN: Soft, no tenderness. Right foot wound is covered with a wound VAC. LABS: Wound culture has been finalized with MRSA, Morganella and anaerobes. DIAGNOSTIC IMPRESSION AND PLAN: Patient with right diabetic foot infection with wet gangrene, status post amputation of the right fifth toe. Cultures now showing anaerobes. We will add Flagyl. He will need a PICC line for outpatient IV antibiotic therapy in the form of vancomycin, pharmacy to dose, cefepime 2 grams q.12 and Flagyl for a total of 6 weeks with weekly monitoring of CBC, BMP and sedimentation rate and PICC line should be ordered for tomorrow. Continue with supportive care. MMODL / IJN: [id number] /
[2020-02-07 02:33] VITALS: RESP 18
[2020-02-07] MEDS: PANTOPRAZOLE 40 MG TABLET PO SCH (06:21)
[2020-02-07] MEDS: metroNIDAZOLE 500 MG TAB PO SCH ×2 (06:21→12:12)
[2020-02-07 06:53] LABS: Glucose,Whole Blood 109 mg/dL (75-99)
[2020-02-07] MEDS: HYDROcodone/APAP 5-325MG 1 EACH TAB PO SCH ×2 (07:44→12:12)
[2020-02-07] MEDS: CEFEPIME 2 GM in SODIUM CHLORIDE 0.9% 100 ML IVPB SCH (07:44)
[2020-02-07] MEDS: MAGNESIUM OXIDE 400 MG TAB PO SCH (07:45)
[2020-02-07] MEDS: METOPROLOL TARTRATE 50 MG TAB PO SCH (07:45)
[2020-02-07] MEDS: DILTIAZEM CD 240 MG CAP.ER.24H PO SCH (07:45)
[2020-02-07] MEDS: FUROSEMIDE 40 MG TAB PO SCH (07:45)
[2020-02-07 08:15] VITALS: BP 155/69; PULSE 78; TEMP 98.4
[2020-02-07] MEDS ORDERED: VANCOMYCIN TROUGH DUE 1 EACH MISC MISCELLANE ONE (09:00)
--- NOTE | 2020-02-07 10:55 | IR ---
EXAMINATION TYPE: IR cvc insert >=5 years DATE OF EXAM: 02/04/2020 COMPARISON: None CLINICAL HISTORY: Infection, need for long-term antibiotics [employer] HELPER: Dr. Delphine Bunch PROCEDURE: The procedure was discussed with the patient. The risks, complications, benefits, and alternatives we re discussed and any questions were answered. Informed consent was obtained. The patient was placed supine. Maximal barrier technique utilized. After informed consent, the skin o verlying the left brachial vein was localized with ultrasound and noted to be compressible and patent . An ultrasound image was obtained and submitted on the patient's chart. Sterile technique utilized with the ultrasound machine. The skin overlying was prepped and draped and Lidocaine used for local a nesthesia. Access was gained to the vein under ultrasound guidance with a 21 gauge needle and a 0.018 inch wire was advanced. A skin colt was made with a scalpel. Access site was dilated with Peel-Away sheath. 4 FR single lumen catheter tailored to the appropriate length and advanced such that the dist al tip is at the cavoatrial junction. Spot image was obtained verifying PICC placement. Catheter was fixed to the skin and a sterile dressing was placed following hemostasis. Catheter was aspirated and flushed with saline. Patient was discharged from the radiology department in stable condition without immediate complication. Fluoro time: 0.1 minutes Fluoroscopic images obtained: 15 IMPRESSION: Status post ultrasound-guided and fluoroscopic-guided PICC placement, ready for use.
[2020-02-07] MEDS: VANCOMYCIN 1,750 MG in SODIUM CHLORIDE 0.9% 500 ML 500 ML IVPB SCH (11:02)
[2020-02-07] MEDS: SODIUM CHLORIDE 0.9% 1,000 ML IV SCH (11:03)
[2020-02-07 11:51] LABS: Basophils # (A) 0.1 k/uL (0-0.2); Basophils % (A) 1 %; Eosinophils # (A) 0.6 k/uL (0-0.7); Eosinophils % (A) 4 %; HCT 42.7 % (39.0-53.0); HGB 13.1 gm/dL (13.0-17.5); Hypochromasia Slight; Lymphocytes # (A) 1.3 k/uL (1.0-4.8); Lymphocytes % (A) 10 %; MCH 27.1 pg (25.0-35.0); MCHC 30.6 g/dL (31.0-37.0); MCV 88.4 fL (80.0-100.0); Mean Platelet Volume 9.7; Monocytes # (A) 1.3 k/uL (0-1.0); Monocytes % (A) 9 %; Neutrophils # (A) 10.2 k/uL (1.3-7.7); Neutrophils % (A) 75 %; Platelet Count 296 k/uL (150-450); RBC 4.83 m/uL (4.30-5.90); RDW 13.3 % (11.5-15.5); WBC 13.6 k/uL (3.8-10.6)
[2020-02-07 11:54] LABS: INR 1.9 (<1.2); Prothrombin Time 18.5 sec (9.0-12.0)
[2020-02-07 12:03] LABS: Calcium 8.4 mg/dL (8.4-10.2); Potassium 4.5 mmol/L (3.5-5.1)
[2020-02-07 12:05] LABS: Glucose,Whole Blood 179 mg/dL (75-99)
--- NOTE | 2020-02-07 12:31 | P.PN ---
Subjective Progress Note Date: 02/07/20 Principal diagnosis: Right foot non-healing wound, osteomyelitis, gangrene of right 5th toe Patient seen and examined at the bedside. He is status post amputation of the right fifth toe. Patient was sleeping but easily arousable. Patient had a PICC line placed. Impending discharge to [facility]. He will be discharged on Flagyl and vancomycin per recommendations of infectious disease. Objective - Vital Signs Vital signs: Vital Signs Temp 98.4 F 02/07/20 07:00 Pulse 78 02/07/20 07:00 Resp 18 02/07/20 07:00 BP 155/69 02/07/20 07:00 Pulse Ox 91 L 02/07/20 07:00 Intake & Output 02/06/20 02/07/20 02/07/20 18:59 06:59 18:59 Output Total 200 825 Balance -200 -825 Output: Urine 200 825 Other: # Voids 3 - Exam General appearance: The patient is alert, confused, in no acute distress. HET: Head is normocephalic and atraumatic. Neck: Supple without lymphadenopathy. Heart: S1 S2. Regular rate and rhythm. Lungs: No crackles or wheezes are heard. Abdomen: Soft, nontender, nondistended with bowel sounds. Extremities: Right lower extremity dressing clean dry and intact with intact wound VAC with good suction. Wound VAC was removed. Amputation site healing well, no malodor, 3 sutures remain intact and well approximated. Neurological: Sleepy but easily arousable. Alert, somewhat confused but that has been his baseline. - Labs CBC & Chem 7: 02/07/20 10:53 02/07/20 10:53 Labs: Abnormal Lab Results - Last 24 Hours (Table) 02/06/20 02/06/20 02/06/20 Range/Units 11:38 16:36 20:14 POC Glucose (mg/dL) 198 H 197 H 235 H (75-99) mg/dL 02/07/20 Range/Units 06:51 POC Glucose (mg/dL) 109 H (75-99) mg/dL Microbiology - Last 24 Hours (Table) 02/01/20 11:52 Blood Culture - Preliminary Blood No Growth after 120 hours Assessment and Plan Assessment: 1. Postop day 5 status post right fifth toe amputation 2. Gangrene with abscess of right fifth toe 3. Nonhealing ulcer to the right foot 4. Atrial fibrillation 5. Congestive heart failure 6. Dementia Plan: Apply wet to dry dressing. Wound VAC to be reapplied at [facility] with a setting at 125 mmHg Continue with local wound care per wound clinic. Patient to follow-up with wound clinic after discharge Continue to follow recommendations per infectious disease. Patient may be discharged once medically stable. Should follow-up with Dr. Edmund eason in one week. The above dictated assessment and findings were discussed with Dr. Patel. The impression and plan of care have been directed as dictated.
--- NOTE | 2020-02-07 12:55 | P.DS ---
Providers Date of admission: 02/01/20 11:19 Expected date of discharge: 02/07/20 Attending physician: Mundo Woodruff Consults: 02/01/20 11:39 Consult Physician Routine Consulting Provider: Neeru Patel Consult Reason/Comments: foot wound Do you want consulting provider notified?: Yes 02/01/20 15:48 Consult Physician Routine Consulting Provider: Sanya Mckeon Consult Reason/Comments: Infected Wound Do you want consulting provider notified?: Yes Primary care physician: Hiram Laird Hospital Course: Final diagnosis Acute cellulitis, nonhealing ulcer of the right foot, status post right fifth toe amputation, wound VAC application Change in mental status, metabolic encephalopathy, multifactorial 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 Patient will follow-up with Dr. Hiram Laird upon discharge. Patient also instructed to follow-up with vascular surgery and the wound care center in the outpatient setting. Patient will continue With IV antibiotic therapy in the form of Cefepime 2 g twice daily, vancomycin Daily, And oral Flagyl 3 times daily for 6 weeks per infectious disease recommendations. Total time taken is greater than 35 minutes. History of present illness This is an 84-year-old male who was recently admitted with Acute cellulitis and nonhealing ulcers of the right foot and was being closely monitored. Infectious disease and vascular surgery were following. Patient underwent right fifth toe amputation with debridement and will be following up with vascular surgery in the outpatient setting. Patient is currently maintained on IV antibiotics in the form of vancomycin along with cefepime and oral Flagyl and will continue for an additional 6 weeks per infectious disease recommendations. Cultures finalizing showing Morganella Morganii, and MRSA. Patient is to have a wound VAC reapplied with a setting at 125 mmHg and to continue with local wound care for the wound clinic. Patient does have a PICC line in the left upper arm. Patient was reinitiated on Coumadin and will need close monitoring of INR for therapeutic levels. A prescription was provided. Currently no reports of chest pain, shortness of breath, or palpitations. Patient is afebrile. No reports of nausea or vomiting and patient is tolerating diet. Patient and family will fur ther discuss palliative care in the outpatient setting. Guarded prognosis. On exam vital signs are stable. Temp is 98.4F, pulse is 78, respirations are 17, blood pressure is 155/69, oxygen saturation is 91% on 2 L via nasal cannula. Cardio S1, S2 are muffled. Respiratory shows diminished breath sounds at the bases with No wheezing or rhonchi noted. Abdomen is soft and nontender. Nervous system shows mild diffuse weakness. Please refer to medication reconciliation sheet for a list of medications. Patient Condition at Discharge: Stable Plan - Discharge Summary Discharge Rx Participant: Yes New Discharge Prescriptions: Continue Metoprolol Tartrate [Lopressor] 100 mg PO BID@0900,2100 Magnesium Oxide [Mag-Ox] 400 mg PO DAILY@0900 Bisacodyl 10 mg PO DAILY PRN PRN Reason: Constipation guaiFENesin [guaiFENesin Oral Solution] 200 mg PO Q4H PRN PRN Reason: Cough Phenylephrine HCl/[place] Butter [Preparation H Suppository] 1 supp RECTAL Q12H Na Phos,M-B/Na Phos,Di-Ba [Fleet Adult] 133 ml RECTAL DAILY PRN PRN Reason: Constipation Magnesium Hydroxide [Milk of Magnesia] 2,400 mg PO Q48H PRN PRN Reason: Constipation bisacodyL [Bisacodyl] 10 mg RECTAL Q72H PRN PRN Reason: Constipation polyethylene glycoL 3350 [Miralax] 17 gm PO DAILY@0900 Potassium Chloride 10 meq PO DAILY@0900 Omeprazole 20 mg PO DAILY@0600 INSULIN ASPART (NovoLOG) [NovoLOG (formulary)] 5 unit SQ DAILY@1700 Furosemide [Lasix] 40 mg PO DAILY@0900 Diltiazem HCl [Diltiazem HCl 24Hr ER] 240 mg PO DAILY@0900 Warfarin [Coumadin] 4.5 mg PO HS@2100 Donepezil HCl [Aricept] 5 mg PO HS@2100 Acetaminophen [Tylenol Extra Strength] 500 mg PO Q8H PRN PRN Reason: Fever And/ Or Pain HYDROcodone/APAP 5-325MG [[place] 5-325] 1 tab PO QID #10 tab Changed Insulin Glargine,Hum.rec.anlog [Basaglar Kwikpen U-100] 20 unit SQ HS@2100 #0 Discharge Medication List Bisacodyl 10 mg PO DAILY PRN 03/05/19 [History] Magnesium Oxide [Mag-Ox] 400 mg PO DAILY@89903/05/19 [History] Metoprolol Tartrate [Lopressor] 100 mg PO BID@0900,209903/05/19 [History] Acetaminophen [Tylenol Extra Strength] 500 mg PO Q8H PRN 02/01/20 [History] Diltiazem HCl [Diltiazem HCl 24Hr ER] 240 mg PO DAILY@89902/01/20 [History] Donepezil HCl [Aricept] 5 mg PO HS@209902/01/20 [History] Furosemide [Lasix] 40 mg PO DAILY@89902/01/20 [History] INSULIN ASPART (NovoLOG) [NovoLOG (formulary)] 5 unit SQ DAILY@17002/01/20 [History] Magnesium Hydroxide [Milk of Magnesia] 2,400 mg PO Q48H PRN 02/01/20 [History] Na Phos,M-B/Na Phos,Di-Ba [Fleet Adult] 133 ml RECTAL DAILY PRN 02/01/20 [History] Omeprazole 20 mg PO DAILY@0602/01/20 [History] Phenylephrine HCl/[place] Butter [Preparation H Suppository] 1 supp RECTAL Q12H 02/01/20 [History] Potassium Chloride 10 meq PO DAILY@89902/01/20 [History] Warfarin [Coumadin] 4.5 mg PO HS@209902/01/20 [History] bisacodyL [Bisacodyl] 10 mg RECTAL Q72H PRN 02/01/20 [History] guaiFENesin [guaiFENesin Oral Solution] 200 mg PO Q4H PRN 02/01/20 [History] polyethylene glycoL 3350 [Miralax] 17 gm PO DAILY@89902/01/20 [History] HYDROcodone/APAP 5-325MG [[place] 5-325] 1 tab PO QID #10 tab 02/07/20 [Rx] Insulin Glargine,Hum.rec.anlog [Basaglar Kwikpen U-100] 20 unit SQ HS@2100 #0 08/31/20 [Rx] Follow up Appointment(s)/Referral(s): Anselmo Danielle, [NON-STAFF] - As Needed Hiram Laird MD [Primary Care Provider] - 1-2 days Ambulatory/Diagnostic Orders: Basic Metabolic Panel [LAB.AMB] Location: None Selected Complete Blood Count w/diff [LAB.AMB] Time Frame: 2 Days, Location: None Selected Prothrombin Time INR [LAB.AMB] Time Frame: 2 Days, Location: None Selected Activity/Diet/Wound Care/Special Instructions: Infectious disease for IV antibiotic recommendations and discharge Patient is going to [facility] Activity as tolerated Continue to monitor blood sugar before meals at bedtime Repeat INR to Monitor Coumadin therapy Continue with local wound care Per vascular surgery and infectious disease recommendations Continue with IV antibiotic therapy per infectious disease Follow-up at the wound care center Follow-up with vascular surgery Discharge Disposition: TRANSFER TO SNF/ECF
--- NOTE | 2020-02-07 14:12 | P.CONS ---
History of Present Illness - Reason for Consult Consult date: 02/07/20 Wound care - History of Present Illness This is an 84-year-old patient known to the wound care center who underwent a amputation of the fifth digit to the right toe. Patient had a pressure ulcer to the lateral aspect of the foot and was brought in last Friday with noticeable ecchymosis and dusky appearance to the fifth digit. Patient was sent to the emergency room for evaluation. Patient then underwent a amputation of the fifth digit of the right foot. Patient is a poor historian with history of dementia. Patient also has history of diabetes. Patient is not able to follow commands he was placed in a offloading boot which caused him to be unstable. Patient was given foam boots to utilize when sitting due to inability to follow commands patient will get up with a foam boot and was at risk for falls. The foam boots were removed. Review of Systems Review Of Systems: Constitutional: No fever, no chills, no night sweats. No weight change. No weakness, fatigue or lethargy. No daytime sleepiness. Integumentary:reports wounds, no lesions. No rash or pruritus. No unusual bruising. No change in hair or nails. Past Medical History Past Medical History: Atrial Fibrillation, Heart Failure, COPD, Dementia, Eye Disorder, GERD/Reflux, Hearing Disorder / Deafness, Hyperlipidemia, Hypertension, Myocardial Infarction (NC), Osteoarthritis (OA) Additional Past Medical History / Comment(s): GLAUCOMA. CHRONIC KIDNEY DISEASE Last Myocardial Infarction Date:: UNK History of Any Multi-Drug Resistant Organisms: MRSA, Other MDRO Year Discovered:: 02/02/20 MRSA MDRO Source:: Right Foot Past Surgical History: Unable to Obtain, Hernia Repair Additional Past Surgical History / Comment(s): open heart surgery Past Anesthesia/Blood Transfusion Reactions: Unable to Obtain Past Psychological History: Unable to Obtain Additional Psychological History / Comment(s): DEMENTIA Smoking Status: Former smoker Past Alcohol Use History: None Reported Past Drug Use History: None Reported Additional Drug Use History / Comment(s): Daughter stated that patient smoked years ago - Past Family History Mother History Unknown: Yes Medications and Allergies Home Medications Medication Instructions Recorded Confirmed Type Bisacodyl 10 mg PO DAILY PRN 03/05/19 02/01/20 History Magnesium Oxide [Mag-Ox] 400 mg PO DAILY@0900 03/05/19 02/01/20 History Metoprolol Tartrate [Lopressor] 100 mg PO BID@0900,209903/05/19 02/01/20 History Acetaminophen [Tylenol Extra 500 mg PO Q8H PRN 02/01/20 02/01/20 History Strength] Diltiazem HCl [Diltiazem HCl 24Hr 240 mg PO DAILY@89902/01/20 02/01/20 History ER] Donepezil HCl [Aricept] 5 mg PO HS@209902/01/20 02/01/20 History Furosemide [Lasix] 40 mg PO DAILY@89902/01/20 02/01/20 History INSULIN ASPART (NovoLOG) [NovoLOG 5 unit SQ DAILY@169902/01/20 02/01/20 History (formulary)] Magnesium Hydroxide [Milk of 2,400 mg PO Q48H PRN 02/01/20 02/01/20 History Magnesia] Na Phos,M-B/Na Phos,Di-Ba [Fleet 133 ml RECTAL DAILY PRN 02/01/20 02/01/20 History Adult] Omeprazole 20 mg PO DAILY@59902/01/20 02/01/20 History Phenylephrine HCl/[place] Butter 1 supp RECTAL Q12H 02/01/20 02/01/20 History [Preparation H Suppository] Potassium Chloride 10 meq PO DAILY@89902/01/20 02/01/20 History Warfarin [Coumadin] 4.5 mg PO HS@209902/01/20 02/01/20 History bisacodyL [Bisacodyl] 10 mg RECTAL Q72H PRN 02/01/20 02/01/20 History guaiFENesin [guaiFENesin Oral 200 mg PO Q4H PRN 02/01/20 02/01/20 History Solution] polyethylene glycoL 3350 [Miralax] 17 gm PO DAILY@89902/01/20 02/01/20 History Cefepime [Maxipime] 2 gm IVPB Q12H #70 bag 02/07/20 Rx HYDROcodone/APAP 5-325MG [[place] 1 tab PO QID #10 tab 02/07/20 Rx 5-325] Insulin Glargine,Hum.rec.anlog 20 unit SQ HS@2099 #0 02/07/20 02/01/20 Rx [Basaglar Kwikpen U-100] Vancomycin HCl in 5 % Dextrose 2 gm IV DAILY #35 plast..bag 02/07/20 Rx [Vancomycin 1 Gram/250 ml-D5w] metroNIDAZOLE [Flagyl] 500 mg PO Q8HR #90 tab 02/07/20 Rx Allergies Allergy/AdvReac Type Severity Reaction Status Date / Time celecoxib [From Celebrex] Allergy Unknown Verified 02/01/20 11:31 gabapentin [From Neurontin] Allergy Unknown Verified 02/01/20 11:31 Physical Exam Vitals: Vital Signs Temp Pulse Resp BP Pulse Ox 02/07/20 07:00 98.4 F 78 18 155/69 91 L 02/07/20 02:32 98.2 F 71 18 160/81 95 02/06/20 22:00 74 02/06/20 19:26 97.6 F 55 L 16 126/70 96 02/06/20 14:34 98.4 F 62 20 135/70 Intake and Output 02/06/20 02/07/20 02/07/20 22:59 06:59 14:59 Output Total 825 250 Balance -825 -250 Output: Urine 825 250 Other: # Voids 1 3 2 Weight 88.9 kg Physical exam: General Appearance: Alert, cooperative, no distress, appears stated age. Skin: Ulceration to the lateral aspect of the right foot, sutures in place, gra nulation seen within the wound bed with slough noted. Patient did have wound VAC in place which was removed. all other Skin color, texture, tugor normal, no rashes or lesions. Neurologic: Alert oriented x3 Results CBC & Chem 7: 02/07/20 10:53 02/07/20 10:53 Labs: Abnormal Lab Results - Last 24 Hours (Table) 02/06/20 02/06/20 02/07/20 Range/Units 16:36 20:14 06:51 WBC (3.8-10.6) k/uL MCHC (31.0-37.0) g/dL Neutrophils # (1.3-7.7) k/uL Monocytes # (0-1.0) k/uL PT (9.0-12.0) sec INR (<1.2) Carbon Dioxide (22-30) mmol/L BUN (9-20) mg/dL Glucose (74-99) mg/dL POC Glucose (mg/dL) 197 H 235 H 109 H (75-99) mg/dL 02/07/20 02/07/20 02/07/20 Range/Units 10:53 10:53 10:53 WBC 13.6 H (3.8-10.6) k/uL MCHC 30.6 L (31.0-37.0) g/dL Neutrophils # 10.2 H (1.3-7.7) k/uL Monocytes # 1.3 H (0-1.0) k/uL PT 18.5 H (9.0-12.0) sec INR 1.9 H (<1.2) Carbon Dioxide 34 H (22-30) mmol/L BUN 29 H (9-20) mg/dL Glucose 218 H (74-99) mg/dL POC Glucose (mg/dL) (75-99) mg/dL 02/07/20 Range/Units 12:03 WBC (3.8-10.6) k/uL MCHC (31.0-37.0) g/dL Neutrophils # (1.3-7.7) k/uL Monocytes # (0-1.0) k/uL PT (9.0-12.0) sec INR (<1.2) Carbon Dioxide (22-30) mmol/L BUN (9-20) mg/dL Glucose (74-99) mg/dL POC Glucose (mg/dL) 179 H (75-99) mg/dL Microbiology - Last 24 Hours (Table) 02/01/20 11:52 Blood Culture - Preliminary Blood No Growth after 120 hours Assessment and Plan Plan: Continue with negative pressure room and 125 mmHg continuous utilizing black foam. Patient to continue with his wound visits on Friday a.m. clinic. Thank you kindly for the consultation any questions please contact the wound care center DNP note has been reviewed and discussed with Dr. Breen and the impression and plan of care has been directed as dictated.
--- NOTE | 2020-02-07 17:02 | PN ---
PROGRESS NOTE DATE OF SERVICE: 02/07/2020 REASON FOR FOLLOWUP: Right diabetic foot infection with wet gangrene and osteomyelitis. INTERVAL HISTORY: Patient is currently afebrile, has been breathing comfortably, he is more awake and alert. No chest pain or cough. No abdominal pain, only wound VAC in the right foot. PHYSICAL EXAMINATION: Blood pressure 155/69 with a pulse of 70, temperature 98.4, he is 91% on 2 L nasal cannula. General description is an elderly male, up in the chair in no distress. RESPIRATORY SYSTEM: Unlabored breathing, clear to auscultation anteriorly. HEART: S1, S2. Regular rate and rhythm. ABDOMEN: Soft, nontender. Right foot is currently covered with a wound VAC. LABS: White count 13.6, from yesterday 16, BUN of 29, creatinine 1.02. Wound culture with Morganella and MRSA anaerobes. IMPRESSION/PLAN: Right fifth toe right gangrene and right fifth re-amputation with the bone exposed, concern for underlying osteomyelitis. The CRP 77.3. PLAN: For vancomycin pharmacy to dose, target of 15, normal venogram, on oral Flagyl for 5 more weeks. Local wound care with wound VAC. Follow up in the office in 2 weeks. MMODL / IJN: [id number] /
[2020-02-07] MEDS ORDERED: WARFARIN 5 MG TAB PO ONE (18:00)
[2020-02-08] MEDS ORDERED: VANCOMYCIN 2,000 MG in SODIUM CHLORIDE 0.9% 500 ML 500 ML IVPB SCH (09:00)
--- NOTE | 2020-02-09 07:11 | CDI ---
Documentation Clarification Form Date: 02/09/20 From: Shonda Tijerina Phone: If you have a question about this query, please contact Abi Bermudez, Trampoline Team Coach at [phone] between 8am and 5pm. Admit Date: 02/01/20 Discharge Date: 02/07/20 Patient Name: ALEJANDRO LEACH Visit Number: [id number] ATTENTION: The Clinical Documentation Specialists (CDI) and [facility] Coding Staff appreciate your assistance in clarifying documentation. Please respond to the clarification below the line at the bottom and electronically sign. The CDI & [facility] Coding staff will review the response and follow-up if needed. Please note: Queries are made part of the Legal Health Record. If you have any questions, please contact the author of this message via ITS. Dear Dr. Mike Patel, CKD is documented in the ED Note, H&P. History/Risk Factors: DM Type II w multiple issues, chronic atrial fibrillation, SARA, COPD Clinical Indicators: 01/31-02/07/20 Current BUN: 35, 27, 21, 23, 22, 29 Current CR: 1.34, 1.13, 1.03, 1.12, 0.93, 1.02 Current GFR: 49, 61, 68, 61, 76, 68 Treatment: Hold Lasix In order to capture the severity of condition, please clarify the stage of the CKD, if known: CKD ruled out CKD Stage 1 (GFR > 90) CKD Stage 2 (GFR 60-89) CKD Stage 3 (GFR 30-59) CKD Stage 4 (GFR 15-29) CKD Stage 5 (GFR <15) ESRD Other, please specify Unable to determine CKD Stage 2 (GFR 60-89) MTDD
== END 2020-02-07 14:46 | DRG 616 ==
LOC: EC 10:26 → 4SSUR 11:19
PROVIDERS: ADMIT Internal Medicine; ATTEND Internal Medicine
PROC: B44HZZZ Ultrasonography of Bilateral Lower Extremity Arteries (ICD-10-PCS; 2020-02-02)
PROC: 0Y6M0Z8 Detachment at Right Foot, Complete 5th Ray, Open Approach (ICD-10-PCS; principal; 2020-02-02 07:30)
PROC: 02HV33Z Insertion of Infusion Device into Superior Vena Cava, Percutaneous Approach (ICD-10-PCS; 2020-02-07)
DX: E11.69 Type 2 diabetes mellitus with other specified complication (principal); G93.41 Metabolic encephalopathy; M86.171 Other acute osteomyelitis, right ankle and foot; I13.0 Hypertensive heart and chronic kidney disease with heart failure and stage 1 through stage 4 chronic kidney disease, or unspecified chronic kidney disease; I48.20 Chronic atrial fibrillation, unspecified; E11.52 Type 2 diabetes mellitus with diabetic peripheral angiopathy with gangrene; L03.115 Cellulitis of right lower limb; L02.611 Cutaneous abscess of right foot; N17.9 Acute kidney failure, unspecified; I50.9 Heart failure, unspecified; E11.22 Type 2 diabetes mellitus with diabetic chronic kidney disease; E11.621 Type 2 diabetes mellitus with foot ulcer; F03.90 Unspecified dementia, unspecified severity, without behavioral disturbance, psychotic disturbance, mood disturbance, and anxiety; L97.514 Non-pressure chronic ulcer of other part of right foot with necrosis of bone; J44.9 Chronic obstructive pulmonary disease, unspecified; E11.628 Type 2 diabetes mellitus with other skin complications; E11.39 Type 2 diabetes mellitus with other diabetic ophthalmic complication; N18.2 Chronic kidney disease, stage 2 (mild); I87.8 Other specified disorders of veins; B96.4 Proteus (mirabilis) (morganii) as the cause of diseases classified elsewhere; H40.9 Unspecified glaucoma; H42 Glaucoma in diseases classified elsewhere; K21.9 Gastro-esophageal reflux disease without esophagitis; Z74.01 Bed confinement status; H91.90 Unspecified hearing loss, unspecified ear; E78.5 Hyperlipidemia, unspecified; I25.2 Old myocardial infarction; M62.562 Muscle wasting and atrophy, not elsewhere classified, left lower leg; M62.561 Muscle wasting and atrophy, not elsewhere classified, right lower leg; M19.90 Unspecified osteoarthritis, unspecified site; Z79.01 Long term (current) use of anticoagulants; Z79.4 Long term (current) use of insulin; Z79.891 Long term (current) use of opiate analgesic; Z79.899 Other long term (current) drug therapy; Z91.81 History of falling; Z87.891 Personal history of nicotine dependence; Z86.14 Personal history of Methicillin resistant Staphylococcus aureus infection; Z87.19 Personal history of other diseases of the digestive system; Z98.890 Other specified postprocedural states; Z88.6 Allergy status to analgesic agent; Z88.8 Allergy status to other drugs, medicaments and biological substances
CPT/HCPCS: 36573; 80048; 80053; 80202; 83605; 83735; 85025; 85027; 85610; 85730; 86140; 87040; 87070; 87075; 87077; 87186; 87205; 88305; 88311; 93923; 99284